=== PATIENT | female | born 1945 | race Caucasian/White ===

== ENCOUNTER 2024-04-15 21:29 | Observation (INO) ==
[2024-04-15] MEDS: OPTIRAY 320 125ml IV ONE (22:01)
[2024-04-15 22:18] LABS: Basophils # (auto) 0.08 K/uL (0.00-0.20); Basophils % (auto) 0.8 %; Eosinophils # (auto) 0.27 K/uL (0.00-0.50); Eosinophils % (auto) 2.8 %; Hematocrit (blood only) 41.3 % (37.0-47.0); Hemoglobin 14.3 g/dl (12.0-16.0); Immature Granulocytes # (auto) 0.03 K/uL (0.01-0.20); Immature Granulocytes % (auto) 0.3 %; Lymphocytes # (auto) 2.66 K/uL (1.20-3.40); Lymphocytes % (auto) 27.8 %; Mean Corpuscular Hemoglobin 31.6 pg (25.0-34.0); Mean Corpuscular Hgb Conc 34.6 g/dL (32.0-36.0); Mean Corpuscular Volume 91.2 fL (80.0-100.0); Mean Platelet Volume 11.2 fL (9.4-12.4); Monocytes # (auto) 0.89 K/uL (0.11-0.59); Monocytes % (auto) 9.3 %; Neutrophils # (auto) 5.65 K/uL (1.40-6.50); Platelet Count 199 K/uL (130-400); RDW Coefficient of Variation 12.1 % (11.5-14.5); RDW Standard Deviation 40.3 fL (36.4-46.3); Red Blood Count 4.53 M/uL (4.20-5.40); White Blood Count 9.58 K/ul (4.8-10.8)
--- NOTE | 2024-04-15 22:20 | Emergency Department Note ---
History of Present Illness General Chief complaint: Dehydration Stated complaint: VOMITING, DIZZY, DEHYDRATED Time Seen by Provider: 04/15/24 21:48 History of Present Illness This 78-year-old female visiting family from [place] that follows with [facility] presents ER for nausea and difficulty ambulating tonight that seems to have improved. Patient states she got up and could not ambulate. She states she just could not walk. She was not dizzy or lightheaded. She does feel slightly nauseous. She states she is feeling better now. Patient has chest pain, dyspnea, fever, chills, numbness, tingling, localized weakness, vision problems, difficulty word finding. No prior heart attack or stroke. Past Med/Surg History Problem List (Updated 04/15/24 @ 23:46 by Colette Dhillon PA-C) Hypokalemia (Acute) TIA (transient ischemic attack) (Acute) Social History Smoking Status: Never smoker Preferred Language: Sinhala Feels Safe at Home: Yes Review of Systems A total of 10 systems reviewed and were otherwise negative Physical Exam Vital Signs Vital Signs - 24 hr 04/15/24 21:33 04/15/24 22:36 04/15/24 22:48 Temperature 36.5 C Temperature Source Temporal Artery Scan Pulse Rate 89 97 H 100 H Pulse Rate from SpO2 Sensor 100 H Respiratory Rate 18 22 Respiratory Effort / Characteristics Non-Labored Spontaneous Respiratory Depth Normal Blood Pressure 163/92 H Blood Pressure Mean 115 Pulse Oximetry 96 95 Oxygen Delivery Method Room Air Room Air Sepsis Recent Fever Within 48 Hours No Sepsis New/Unexplained Change in Mental Status No Sepsis Action Taken by Nursing No Action Required 04/15/24 23:00 Temperature Temperature Source Pulse Rate 98 H Pulse Rate from SpO2 Sensor 98 H Respiratory Rate 20 Respiratory Effort / Characteristics Respiratory Depth Blood Pressure 163/87 H Blood Pressure Mean 119 Pulse Oximetry 96 Oxygen Delivery Method Room Air Sepsis Recent Fever Within 48 Hours Sepsis New/Unexplained Change in Mental Status Sepsis Action Taken by Nursing VITALS: Vitals are noted on the nurse's note and reviewed by myself. Vital signs stable. GENERAL: Pleasant female able to ambulate, in no acute distress, nondiaphoretic, well-developed well-nourished. SKIN: The skin was without rashes, erythema, edema, or bruising. There is no tenting of the skin. Capillary reflex less than 2 seconds. HEAD: Normocephalic atraumatic. EARS: External auditory canals clear EYES: Pupils equal round and reactive to light and accommodation. Conjunctivae without injection, sclerae without icterus. Extraocular movements intact. NOSE: Patent, no discharge. MOUTH: Mucous membranes moist. Pharynx without erythema or exudate. Uvula midline. Airway patent. Tongue does not deviate. NECK: Supple without nuchal rigidity. No lymphadenopathy. No thyromegaly. Cervical spine is nontender. No JVD. HEART: Regular rate and rhythm LUNGS: Clear to auscultation bilaterally without wheezes, rales or rhonchi. No retractions or accessory muscle use. ABDOMEN: Positive bowel sounds x 4. Normal tympanic percussion. Soft, nontender, without masses or organomegaly. Newman sign negative. No guarding or rebound tenderness. No CVA tenderness MUSCULOSKELETAL: No muscle atrophy, erythema, or edema noted. 5-5 strength throughout. NEURO: Patient was alert and oriented to person place and time. Normal sensation to light and sharp touch. Cranial nerves II through XII grossly intact. No parameter. Still above exam intact. No focal neurological deficits. Course Administered Medications Discontinued Medications Sodium Chloride (Nss) 500 mls @ 999 mls/hr IV .Q31M ONE Stop: 04/15/24 22:57 Last Infusion: 04/15/24 23:18 Dose: Infused Documented By: Admin: 04/15/24 22:31 Dose: 999 mls/hr Documented By: ANAID Famotidine (Pepcid 20mg Iv Push) 20 mg in 5 mls @ 2.5 mls/min IV NOW STA Stop: 04/15/24 23:29 Last Admin: 04/15/24 23:42 Dose: 2.5 mls/min Documented By: AVNI Ioversol (Optiray 320 125ml) 125 ml IV ONCE ONE Stop: 04/15/24 22:02 Last Admin: 04/15/24 22:01 Dose: 118 ml Documented By: KORY Ondansetron HCl (Ondansetron Inj 2 Mg/Ml 2 Ml Vial) 4 mg IV NOW STA Stop: 04/15/24 22:28 Last Admin: 04/15/24 22:32 Dose: 4 mg Documented By: ANAID Ondansetron HCl (Ondansetron Inj 2 Mg/Ml 2 Ml Vial) 4 mg IV NOW STA Stop: 04/15/24 23:29 Last Admin: 04/15/24 23:44 Dose: 4 mg Documented By: AVNI Potassium Chloride (Potassium Chloride Crtab 20 Meq Tabcr) 40 meq PO NOW STA Stop: 04/15/24 22:48 Last Admin: 04/15/24 23:10 Dose: 40 meq Documented By: ANAID Medical Decision Making Medical Records Attestation: I reviewed the patient's medical records. Home Medications Current Medication List: was personally reviewed by me Laboratory Data Attestation: I reviewed the patient's lab results. 04/15/24 21:54 04/15/24 21:54 Lab Results 04/15/24 04/15/24 04/15/24 Range/Units 21:54 22:10 22:13 WBC 9.58 (4.8-10.8) K/ul RBC 4.53 (4.20-5.40) M/uL Hgb 14.3 (12.0-16.0) g/dl Hct 41.3 (37.0-47.0) % MCV 91.2 (80.0-100.0) fL MCH 31.6 (25.0-34.0) pg MCHC 34.6 (32.0-36.0) g/dL RDW Std Deviation 40.3 (36.4-46.3) fL RDW Coeff of Siva 12.1 (11.5-14.5) % Plt Count 199 (130-400) K/uL MPV 11.2 (9.4-12.4) fL Immature Gran % (Auto) 0.3 % Neut % (Auto) 59.0 % Lymph % (Auto) 27.8 % Emanuel % (Auto) 9.3 % Eos % (Auto) 2.8 % Baso % (Auto) 0.8 % Neut # (Auto) 5.65 (1.40-6.50) K/uL Lymph # (Auto) 2.66 (1.20-3.40) K/uL Emanuel # (Auto) 0.89 H (0.11-0.59) K/uL Eos # (Auto) 0.27 (0.00-0.50) K/uL Baso # (Auto) 0.08 (0.00-0.20) K/uL Immature Gran # (Auto) 0.03 (0.01-0.20) K/uL PT 10.6 (9.0-12.0) Seconds INR 1.0 (0.9-1.1) APTT 23 (21-31) Seconds PTT Ratio 0.9 Sodium 135 L (136-145) mmol/L Potassium 3.0 L (3.5-5.1) mmol/L Chloride 95 L (98-107) mmol/L Carbon Dioxide 30 (21-32) mmol/L Anion Gap 10 (3-11) BUN 14 (6-23) mg/dl Creatinine 0.86 (0.6-1.2) mg/dl Est Cr Clr Drug Dosing 48.4 ml/min eGFR 69.10 BUN/Creatinine Ratio 16.3 (10-20) Glucose 114 H (70-99(Fasting)) mg/dl POC Glucose 108 H (70-99) mg/dl Calcium 9.8 (8.6-10.3) mg/dl Magnesium 1.8 (1.7-2.4) mg/dl Total Bilirubin 0.6 (0.2-1.0) mg/dl AST 34 (13-39) U/L ALT 18 (7-52) U/L Alkaline Phosphatase 61 (34-104) U/L Troponin I High Sens 4.1 (0-14) pg/ml Total Protein 7.3 (6.0-8.3) gm/dl Albumin 4.6 (3.4-5.0) gm/dl Globulin 2.7 (2.5-4.0) gm/dl Albumin/Globulin Ratio 1.7 (0.9-2) Ethyl Alcohol mg/dL (<10.0) mg/dl Adenovirus (PCR) Not Detected (NotDetected) B. pertussis DNA (PCR) Not Detected (NotDetected) B.parapertussis DNA PCR Not Detected (NotDetected) C. pneumoniae DNA (PCR) Not Detected (NotDetected) Coronavirus OC43 (PCR) Not Detected (NotDetected) Coronavirus HKU1 (PCR) Not Detected (NotDetected) Coronavirus 229E (PCR) Not Detected (NotDetected) SARS-CoV-2 (PCR) Not Detected (NotDetected) Coronavirus NL63 (PCR) Not Detected (NotDetected) Human Metapneumovir PCR Not Detected (NotDetected) Influenza Type A (PCR) Not Detected (NotDetected) Influenza Type B (PCR) Not Detected (NotDetected) M. pneumoniae (PCR) Not Detected (NotDetected) Parainfluenza 1 (PCR) Not Detected (NotDetected) Parainfluenza 2 (PCR) Not Detected (NotDetected) Parainfluenza 3 (PCR) Not Detected (NotDetected) Parainfluenza 4 (PCR) Not Detected (NotDetected) RSV (PCR) Not Detected (NotDetected) Entero/Rhino (PCR) Not Detected (NotDetected) 04/15/24 Range/Units 22:32 WBC (4.8-10.8) K/ul RBC (4.20-5.40) M/uL Hgb (12.0-16.0) g/dl Hct (37.0-47.0) % MCV (80.0-100.0) fL MCH (25.0-34.0) pg MCHC (32.0-36.0) g/dL RDW Std Deviation (36.4-46.3) fL RDW Coeff of Siva (11.5-14.5) % Plt Count (130-400) K/uL MPV (9.4-12.4) fL Immature Gran % (Auto) % Neut % (Auto) % Lymph % (Auto) % Emanuel % (Auto) % Eos % (Auto) % Baso % (Auto) % Neut # (Auto) (1.40-6.50) K/uL Lymph # (Auto) (1.20-3.40) K/uL Emanuel # (Auto) (0.11-0.59) K/uL Eos # (Auto) (0.00-0.50) K/uL Baso # (Auto) (0.00-0.20) K/uL Immature Gran # (Auto) (0.01-0.20) K/uL PT (9.0-12.0) Seconds INR (0.9-1.1) APTT (21-31) Seconds PTT Ratio Sodium (136-145) mmol/L Potassium (3.5-5.1) mmol/L Chloride (98-107) mmol/L Carbon Dioxide (21-32) mmol/L Anion Gap (3-11) BUN (6-23) mg/dl Creatinine (0.6-1.2) mg/dl Est Cr Clr Drug Dosing ml/min eGFR BUN/Creatinine Ratio (10-20) Glucose (70-99(Fasting)) mg/dl POC Glucose (70-99) mg/dl Calcium (8.6-10.3) mg/dl Magnesium (1.7-2.4) mg/dl Total Bilirubin (0.2-1.0) mg/dl AST (13-39) U/L ALT (7-52) U/L Alkaline Phosphatase (34-104) U/L Troponin I High Sens (0-14) pg/ml Total Protein (6.0-8.3) gm/dl Albumin (3.4-5.0) gm/dl Globulin (2.5-4.0) gm/dl Albumin/Globulin Ratio (0.9-2) Ethyl Alcohol mg/dL < 10.0 (<10.0) mg/dl Adenovirus (PCR) (NotDetected) B. pertussis DNA (PCR) (NotDetected) B.parapertussis DNA PCR (NotDetected) C. pneumoniae DNA (PCR) (NotDetected) Coronavirus OC43 (PCR) (NotDetected) Coronavirus HKU1 (PCR) (NotDetected) Coronavirus 229E (PCR) (NotDetected) SARS-CoV-2 (PCR) (NotDetected) Coronavirus NL63 (PCR) (NotDetected) Human Metapneumovir PCR (NotDetected) Influenza Type A (PCR) (NotDetected) Influenza Type B (PCR) (NotDetected) M. pneumoniae (PCR) (NotDetected) Parainfluenza 1 (PCR) (NotDetected) Parainfluenza 2 (PCR) (NotDetected) Parainfluenza 3 (PCR) (NotDetected) Parainfluenza 4 (PCR) (NotDetected) RSV (PCR) (NotDetected) Entero/Rhino (PCR) (NotDetected) Imaging Data Attestation: I personally reviewed and interpreted this imaging study as follows: Radiologist's Impression: Head CT 04/15/24 21:55 CR Exam(s): CT HEAD Without Contrast EXAM: CT Head Without Intravenous Contrast CLINICAL HISTORY: Reason for exam: neuro deficit, acute stroke suspected. TECHNIQUE: Axial computed tomography images of the head/brain without intravenous contrast. CTDI is 12.34 mGy and DLP is 481.93 mGy-cm. Automated exposure control was utilized for the study. A dose lowering technique was utilized adhering to the principles of ALARA. COMPARISON: No relevant prior studies available. FINDINGS: Brain: Generalized parenchymal volume loss. Mild-moderate chronic small vessel ischemic change. José-white matter differentiation maintained. No hemorrhage, mass effect, parenchymal edema, or midline shift. Ventricles: Unremarkable. No hydrocephalus. Bones/joints: Unremarkable. No acute fracture. Soft tissues: Unremarkable. Vasculature: Intracranial atherosclerosis. Sinuses: Unremarkable as visualized. Mastoid air cells: Unremarkable as visualized. No mastoid effusion. IMPRESSION: No acute intracranial process. Communications: Call Doctor Stroke Electronically signed by: Cam Dang M.D. 04/15/24 22:26 PM Head CTA 04/15/24 21:55 CR Exam(s): CTA HEAD With Contrast IV Amt: 118 ML OPTIRAY 320 EXAM: CT Angiography Head With Intravenous Contrast CLINICAL HISTORY: Reason for exam: neuro deficit, acute stroke suspected. TECHNIQUE: Axial computed tomographic angiography images of the head with intravenous contrast. CTDI is 38.1 mGy and DLP is 624.41 mGy-cm. Automated exposure control was utilized for the study. A dose lowering technique was utilized adhering to the principles of ALARA. MIP reconstructed images were created and reviewed. CONTRAST: Patient received 118 ML OPTIRAY 320 of IV contrast COMPARISON: CT head 04/15/24 FINDINGS: Right internal carotid artery: No acute findings. Intracranial segment is patent with no significant stenosis. No aneurysm. Right anterior cerebral artery: Unremarkable. No occlusion or significant stenosis. No aneurysm. Right middle cerebral artery: Unremarkable. No occlusion or significant stenosis. No aneurysm. Right posterior cerebral artery: origin of the right CRUISE GUIDE. No occlusion or significant stenosis. No aneurysm. Right vertebral artery: Unremarkable as visualized. Left internal carotid artery: No acute findings. Intracranial segment is patent with no significant stenosis. No aneurysm. Left anterior cerebral artery: Unremarkable. No occlusion or significant stenosis. No aneurysm. Left middle cerebral artery: Unremarkable. No occlusion or significant stenosis. No aneurysm. Left posterior cerebral artery: origin of the left CRUISE GUIDE. No occlusion or significant stenosis. No aneurysm. Left vertebral artery: Left vertebral artery terminates in PICA, developmental variant. Basilar artery: Hypoplastic basilar artery with segmental occlusion. No aneurysm. IMPRESSION: Hypoplastic basilar artery with segmental occlusion, age-indeterminate. Patient has anterior-dominant circulation with origin of both rear load truck driver, which appear patent. Consider MRI brain for further evaluation. Communications: Call Doctor Stroke Electronically signed by: Cam Dang M.D. 04/15/24 22:37 PM Neck CTA 04/15/24 21:55 CR Exam(s): CTA NECK With Contrast IV Amt: 118 ML OPTIRAY 320 EXAM: CT Angiography Neck With Intravenous Contrast CLINICAL HISTORY: Reason for exam: neuro deficit, acute stroke suspected. TECHNIQUE: Routine carotid CT angiography protocol was performed with intravenous contrast. NASCET criteria using the distal ICAs for comparison were used for evaluation of stenoses. CTDI is 12.34 mGy and DLP is 481.93 mGy-cm. Automated exposure control was utilized for the study. A dose lowering technique was utilized adhering to the principles of ALARA. MIP reconstructed images were created and reviewed. CONTRAST: Patient received 118 ML OPTIRAY 320 of IV contrast COMPARISON: None. FINDINGS: VASCULATURE: Right common carotid artery: Unremarkable. No occlusion or significant stenosis. No dissection. Right internal carotid artery: Unremarkable. Extracranial segment is patent with no occlusion or significant stenosis. No dissection. Right external carotid artery: Unremarkable. No occlusion. Right vertebral artery: Unremarkable. No occlusion or significant stenosis. No dissection. Left common carotid artery: Unremarkable. No occlusion or significant stenosis. No dissection. Left internal carotid artery: Unremarkable. Extracranial segment is patent with no occlusion or significant stenosis. No dissection. Left external carotid artery: Unremarkable. No occlusion. Left vertebral artery: Unremarkable. No occlusion or significant stenosis. No dissection. Aorta: Variant aortic arch branch anatomy with direct origin of the left vertebral artery from the arch. NECK: Bones/joints: Degenerative changes of the cervical spine. No acute osseous findings. Soft tissues: Unremarkable. Thyroid: Right thyroid lobe nodule measuring 16 mm. Lung apices: Clear. CAROTID STENOSIS REFERENCE USING NASCET CRITERIA: % ICA stenosis = (1 - narrowest ICA diameter/diameter of distal cervical ICA) x 100. Mild - <50% stenosis. Moderate - 50-69% stenosis. Severe - 70-94% stenosis. Near occlusion - 95-99% stenosis. Occluded - 100% stenosis. IMPRESSION: 1. No dissection, significant stenosis, or occlusion. 2. Right thyroid lobe nodule measuring 16 mm. Consider thyroid ultrasound correlation if not previously performed. Communications: Call Doctor Stroke Electronically signed by: Cam Dang M.D. 04/15/24 22:32 PM MDM Narrative Prior records/ancillary studies reviewed and summarized above. Nursing notes reviewed. Additional history obtained from family The patient's history was concerning for difficulty ambulating and nausea. Differential diagnosis: Etiologies such as metabolic, infection, hypo/hyperglycemia, electrolyte abnormalities, cardiac sources, intracerebral event, toxicologic, neurologic, as well as others were entertained. Physical examination: As above. ER treatment provided: IV Lock An order was placed for continuous cardiac monitoring. The monitor shows a rate of 60-100 with a sinus rhythm per my interpretation. Zofran, potassium, Pepcid Patient was emergently sent down for stroke evaluation On reassessment the patient felt better. Diagnostics interpretation by me: ECG: Ordered for weakness EKG: Normal sinus, poor baseline, T wave inversions in V5 and V6, rate of 93. Impression normal sinus rhythm poor baseline with nonspecific T wave inversions in the lateral leads independently interpreted by myself The labs Independently Interpreted by myself revealed hypokalemia and this is replaced orally. Normal magnesium Negative troponin Negative [employer] Imaging studies: CTs were reviewed and read by radiology as above TIA Score: Age > 60:(1) 1 BP >140 >90 (1): 1 Clinical features (unilateral weakness) (2): 0 CF speech disturbance (1): 1 Duration of symptoms 10-60min (1): 1 Duration >60min (2): 0 Diabetes (1): 0 Score @ 2days @ 7days @ 90days 0-3 low 1% 1.2% 3.1% 4-5 mod 4.1% 5.9% 9.8% 6-7 high 8.1% 11.7% 17.8% Total: 4 Consultation: A consultation was placed with the hospitalist. The case was discussed and diagnostics were reviewed. The patient was evaluated in the ER for further treatment. Exam and history seem consistent with concerns for TIA. Patient was unable to walk initially but now was able to. Her symptoms have resolved. No acute stroke on imaging. TIA score was moderate. Brain MRI was ordered. Subacute stroke was noted. I did discuss this with the radiologist. Medicine consulted case discussed. Patient will be admitted to the medical service. Patient is agreeable. By the evaluation outlined above emergent etiologies such as infection, cardiac sources, toxologic, abnormalities blood glucose, metabolic, as well as others were deemed relatively unlikely. The pt informed about the findings as listed above. All questions were answered and pleased with the treatment. The chart was completed utilizing [employer] Speech voice recognition software. Grammatical errors, random word insertions, pronoun errors, and incomplete sentences are an occassional consequence of this system due to software limitations, ambient noise, and hardware issues. Any formal questions or concerns about the content, text, or information contained within the body of this dictation should be directly addressed to the physician school bus driver/teacher assistant for clarification. Impression & Plan TIA (transient ischemic attack), Hypokalemia Discharge Plan Visit Data Chief Complaint: Dehydration Stated Complaint: VOMITING, DIZZY, DEHYDRATED ED Provider: Jeferson Upton ED Midlevel Provider: Colette Dhillon Discharge Problem: TIA (transient ischemic attack), Hypokalemia Patient Disposition: Admitted As Inpatient Condition: Good Forms Stand Alone Forms: My [facility] Referrals Referrals: PCP,NO [Physician] -
[2024-04-15 22:27] LABS: Albumin Globulin Ratio 1.7 (0.9-2); Albumin Level 4.6 gm/dl (3.4-5.0); BUN Creatinine Ratio 16.3 (10-20); Bilirubin,Total 0.6 mg/dl (0.2-1.0); Calcium 9.8 mg/dl (8.6-10.3); Creatinine Clr Calc Pharmacy 48.4 ml/min; Globulin 2.7 gm/dl (2.5-4.0); Magnesium 1.8 mg/dl (1.7-2.4); Total Protein 7.3 gm/dl (6.0-8.3)
--- NOTE | 2024-04-15 22:27 | CT Scan Report ---
Exam(s): CT HEAD Without Contrast EXAM: CT Head Without Intravenous Contrast CLINICAL HISTORY: Reason for exam: neuro deficit, acute stroke suspected. TECHNIQUE: Axial computed tomography images of the head/brain without intravenous contrast. CTDI is 12.34 mGy and DLP is 481.93 mGy-cm. Automated exposure control was utilized for the study. A dose lowering technique was utilized adhering to the principles of ALARA. COMPARISON: No relevant prior studies available. FINDINGS: Brain: Generalized parenchymal volume loss. Mild-moderate chronic small vessel ischemic change. José-white matter differentiation maintained. No hemorrhage, mass effect, parenchymal edema, or midline shift. Ventricles: Unremarkable. No hydrocephalus. Bones/joints: Unremarkable. No acute fracture. Soft tissues: Unremarkable. Vasculature: Intracranial atherosclerosis. Sinuses: Unremarkable as visualized. Mastoid air cells: Unremarkable as visualized. No mastoid effusion. IMPRESSION: No acute intracranial process. Communications: Call Doctor Stroke Electronically signed by: Cam Dang M.D. 04/15/24 22:26 PM
[2024-04-15] MEDS: SODIUM CHLORIDE 0.9% 500 ML IV ONE (22:31)
[2024-04-15] MEDS: ONDANSETRON INJ 2 MG/ML 2 ML VIAL IV STA ×2 (22:32→23:44)
--- NOTE | 2024-04-15 22:33 | CT Scan Report ---
Exam(s): CTA NECK With Contrast IV Amt: 118 ML OPTIRAY 320 EXAM: CT Angiography Neck With Intravenous Contrast CLINICAL HISTORY: Reason for exam: neuro deficit, acute stroke suspected. TECHNIQUE: Routine carotid CT angiography protocol was performed with intravenous contrast. NASCET criteria using the distal ICAs for comparison were used for evaluation of stenoses. CTDI is 12.34 mGy and DLP is 481.93 mGy-cm. Automated exposure control was utilized for the study. A dose lowering technique was utilized adhering to the principles of ALARA. MIP reconstructed images were created and reviewed. CONTRAST: Patient received 118 ML OPTIRAY 320 of IV contrast COMPARISON: None. FINDINGS: VASCULATURE: Right common carotid artery: Unremarkable. No occlusion or significant stenosis. No dissection. Right internal carotid artery: Unremarkable. Extracranial segment is patent with no occlusion or significant stenosis. No dissection. Right external carotid artery: Unremarkable. No occlusion. Right vertebral artery: Unremarkable. No occlusion or significant stenosis. No dissection. Left common carotid artery: Unremarkable. No occlusion or significant stenosis. No dissection. Left internal carotid artery: Unremarkable. Extracranial segment is patent with no occlusion or significant stenosis. No dissection. Left external carotid artery: Unremarkable. No occlusion. Left vertebral artery: Unremarkable. No occlusion or significant stenosis. No dissection. Aorta: Variant aortic arch branch anatomy with direct origin of the left vertebral artery from the arch. NECK: Bones/joints: Degenerative changes of the cervical spine. No acute osseous findings. Soft tissues: Unremarkable. Thyroid: Right thyroid lobe nodule measuring 16 mm. Lung apices: Clear. CAROTID STENOSIS REFERENCE USING NASCET CRITERIA: % ICA stenosis = (1 - narrowest ICA diameter/diameter of distal cervical ICA) x 100. Mild - <50% stenosis. Moderate - 50-69% stenosis. Severe - 70-94% stenosis. Near occlusion - 95-99% stenosis. Occluded - 100% stenosis. IMPRESSION: 1. No dissection, significant stenosis, or occlusion. 2. Right thyroid lobe nodule measuring 16 mm. Consider thyroid ultrasound correlation if not previously performed. Communications: Call Doctor Stroke Electronically signed by: Cam Dang M.D. 04/15/24 22:32 PM
[2024-04-15 22:35] LABS: Troponin I High Sensitivity 4.1 pg/ml (0-14)
--- NOTE | 2024-04-15 22:38 | CT Scan Report ---
Exam(s): CTA HEAD With Contrast IV Amt: 118 ML OPTIRAY 320 EXAM: CT Angiography Head With Intravenous Contrast CLINICAL HISTORY: Reason for exam: neuro deficit, acute stroke suspected. TECHNIQUE: Axial computed tomographic angiography images of the head with intravenous contrast. CTDI is 38.1 mGy and DLP is 624.41 mGy-cm. Automated exposure control was utilized for the study. A dose lowering technique was utilized adhering to the principles of ALARA. MIP reconstructed images were created and reviewed. CONTRAST: Patient received 118 ML OPTIRAY 320 of IV contrast COMPARISON: CT head 04/15/24 FINDINGS: Right internal carotid artery: No acute findings. Intracranial segment is patent with no significant stenosis. No aneurysm. Right anterior cerebral artery: Unremarkable. No occlusion or significant stenosis. No aneurysm. Right middle cerebral artery: Unremarkable. No occlusion or significant stenosis. No aneurysm. Right posterior cerebral artery: origin of the right JEWELRY SALES REPRESENTATIVE. No occlusion or significant stenosis. No aneurysm. Right vertebral artery: Unremarkable as visualized. Left internal carotid artery: No acute findings. Intracranial segment is patent with no significant stenosis. No aneurysm. Left anterior cerebral artery: Unremarkable. No occlusion or significant stenosis. No aneurysm. Left middle cerebral artery: Unremarkable. No occlusion or significant stenosis. No aneurysm. Left posterior cerebral artery: origin of the left JEWELRY SALES REPRESENTATIVE. No occlusion or significant stenosis. No aneurysm. Left vertebral artery: Left vertebral artery terminates in PICA, developmental variant. Basilar artery: Hypoplastic basilar artery with segmental occlusion. No aneurysm. IMPRESSION: Hypoplastic basilar artery with segmental occlusion, age-indeterminate. Patient has anterior-dominant circulation with origin of both bread wrapping machine feeder, which appear patent. Consider MRI brain for further evaluation. Communications: Call Doctor Stroke Electronically signed by: Cam Dang M.D. 04/15/24 22:37 PM
[2024-04-15 22:47] LABS: Partial Thromboplastin Ratio 0.9; Partial Thromboplastin Time 23 Seconds (21-31); Prothrombin Time 10.6 Seconds (9.0-12.0)
[2024-04-15] MEDS: POTASSIUM CHLORIDE CRTAB 20 MEQ TABCR PO STA (23:10)
[2024-04-15 23:11] LABS: Adenovirus PCR Not Detected (NotDetected); Bordetella parapertussis PCR Not Detected (NotDetected); Bordetella pertussis PCR Not Detected (NotDetected); Chlamydia pneumoniae PCR Not Detected (NotDetected); Coronavirus 229E PCR Not Detected (NotDetected); Coronavirus CoV-2 (COVID19)PCR Not Detected (NotDetected); Coronavirus HKU1 PCR Not Detected (NotDetected); Coronavirus NL63 PCR Not Detected (NotDetected); Coronavirus OC43PCR Not Detected (NotDetected); Human Metapneumovirus PCR Not Detected (NotDetected); Influenza A PCR Not Detected (NotDetected); Influenza B PCR Not Detected (NotDetected); Mycoplasma pneumoniae PCR Not Detected (NotDetected); Parainfluenza Virus 1 PCR Not Detected (NotDetected); Parainfluenza Virus 2 PCR Not Detected (NotDetected); Parainfluenza Virus 3 PCR Not Detected (NotDetected); Parainfluenza Virus 4 PCR Not Detected (NotDetected); Respiratory Syncytial VirusPCR Not Detected (NotDetected); Rhinovirus/Enterovirus PCR Not Detected (NotDetected)
--- NOTE | 2024-04-15 23:22 | Emergency Department Note ---
ED Visit Note I was consulted by the Advanced Practice Provider. I personally made/approved the management plan and take responsibility for the patient management. I performed a substantive portion of the visit. This includes the aspects of: -History/Physical -MDM .
[2024-04-15] MEDS: FAMOTIDINE 20MG IV PUSH 20 MG/5 ML SYR IV STA (23:42)
[2024-04-16] MEDS: LORazepam 1 MG/1 ML SYR ED Inj Use IV STA (00:22)
--- NOTE | 2024-04-16 00:22 | XRay Report ---
Exam(s): XR CXR 1 VIEW EXAM: XR Chest, 1 View CLINICAL HISTORY: Reason for exam: neuro deficit, acute stroke suspected. TECHNIQUE: Frontal view of the chest. COMPARISON: No relevant prior studies available. FINDINGS: Lungs: Unremarkable. No consolidation. Pleural space: Unremarkable. No pleural effusion or pneumothorax. Heart: Unremarkable. No cardiomegaly or pulmonary vascular congestion. Bones/joints: No acute fracture. No dislocation. IMPRESSION: No evidence of acute cardiopulmonary disease. Electronically signed by: Cam Dang M.D. 04/16/24 00:21 AM
[2024-04-16] MEDS: ASPIRIN 81 MG CHEW PO STA (02:38)
--- NOTE | 2024-04-16 02:48 | History & Physical Report ---
Date of Service April 16, 2024 Assessment & Plan (1) Stroke-like symptom: Plan: 78-year-old female with past medical history significant for prediabetes, asthma in remission, abnormal EKG, hypertension, cholelithiasis, nausea vomiting ,diarrhea, chronic kidney disease stage III presents with strokelike symptoms. Patient was at [facility]. Around 8 PM she suddenly felt nauseous and sick to her stomach she felt like she could not move and she sat down. She was feeling nauseous and tried to vomit but could not vomit. She coughed trying to vomit. The feeling of not able to move lasted for about 45 minutes. Currently in the ER she is able to ambulate okay. After antinausea medications she is feeling better. Denies any headache or dizziness. No blurred visions or double vision. No earache, no runny nose currently. No sore throat. No difficulty swallowing. Denies chest pain. Denies shortness of breath. Feeling sick to her stomach. No diarrhea or constipation. No blood in stools or black stools. Micturating okay. No rash. 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 Right thyroid lobe measuring 16 mm Awaiting brain MRI Currently symptoms improved Monitoring telemetry Neurochecks PT OT evaluation Follow lipid profile and HbA1c levels repeat labs Starting on aspirin. Continue home rosuvastatin Neurology consult in a.m. for further recommendation Nausea and vomiting LFTs okay Troponin okay If not improving will get CT scan Gentle fluids and antiemetics. Hypertension On valsartan hydrochlorothiazide and nifedipine and atenolol Will monitor Right thyroid nodule will follow ultrasound will check tsh Hyperlipidemia On statin Prediabetes Will follow HbA1c levels CKD stage III Creatinine 0.8 We will monitor Hypokalemia Replace DVT prophylaxis SCDs Disposition Telemetry Code. History of Present Illness Chief Complaint: Strokelike symptoms Primary Care Provider: Vargas Barber DO 78-year-old female with past medical history significant for prediabetes, asthma in remission, abnormal EKG, hypertension, cholelithiasis, nausea vomiting ,diarrhea, chronic kidney disease stage III presents with strokelike symptoms. Patient was at [facility]. Around 8 PM she suddenly felt nauseous and sick to her stomach she felt like she could not move and she sat down. She was feeling nauseous and tried to vomit but could not vomit. She coughed trying to vomit. The feeling of not able to move lasted for about 45 minutes. Currently in the ER she is able to ambulate okay. After antinausea medications she is feeling better. Denies any headache or dizziness. No blurred visions or double vision. No earache, no runny nose currently. No sore throat. No difficulty swallowing. Denies chest pain. Denies shortness of breath. Feeling sick to her stomach. No diarrhea or constipation. No blood in stools or black stools. Micturating okay. No rash. Hemodynamics are okay.Patient got Ativan for MRI scan after that she was requiring oxygen Past medical history. As mentioned above Past surgical history. Colonoscopy. Removal of skin lesions. Tonsillectomy. Social history. Quit smoking 1977. Smoked 0.3 packs a day for 10 years. Alcohol rarely. No drug use. Family history. Mother had stomach cancer. Hypertension. Brother had hypertension. Father had hypertension. Son has hypertension Allergies Allergy/AdvReac Type Severity Reaction Status Date / Time No Known Allergies Allergy Unverified 04/16/24 00:25 Home Medications Medication Instructions Recorded Confirmed Type atenolol 100 mg tablet 100 mg PO QAM 04/16/24 04/16/24 History betamethasone valerate 0.1 % 1 applic topical BID 04/16/24 04/16/24 History topical cream escitalopram oxalate 10 mg tablet 10 mg PO DAILY 04/16/24 04/16/24 History nifedipine 30 mg tablet,extended 30 mg PO DAILY 04/16/24 04/16/24 History release 24 hr raloxifene 60 mg tablet 60 mg PO DAILY 04/16/24 04/16/24 History rosuvastatin 40 mg tablet 40 mg PO DAILY 04/16/24 04/16/24 History valsartan 160 1 tab PO QAM 04/16/24 04/16/24 History mg-hydrochlorothiazide 12.5 mg tablet Past Med/Surg History Problem List (Updated 04/16/24 @ 02:42 by Boubacar Mendoza MD) Stroke-like symptom Hypokalemia (Acute) TIA (transient ischemic attack) (Acute) Social History Smoking Status: Former smoker Tobacco Type: Cigarettes Smoking End Date: 1982; Second Hand Exposure: No; Do You Dip or Chew Tobacco: No; Tobacco Cessation Education Requested by Patient: No Hx Alcohol Use: No Hx Substance Use: No Preferred Language: Panamanian Communication Ability: Effective Piano Refinisher Required: No Beliefs That Will Affect Care: None Current Living Situation: Alone Other Information That Helps Us Care for You: No Feels Safe at Home: Yes Safety Concerns: Feels Safe At This Time Assistive Devices: Glasses Review of Systems Review of Systems: All systems reviewed & are unremarkable except as noted in HPI & below Physical Exam Physical Exam: General- Not in distress Head- atraumatic Eyes- PERRL, EOMI. ENT- oropharynx clear Neck- supple, no JVD Lungs- clear to auscultation no wheezing or crackles Heart- regular rate and rhythm; no murmur, no gallop. Abdomen- normal bowel sounds, soft, nontender, no distension. Extremities-trace pretibial edema present, no erythema seen Neuro- alert, oriented PERRL, EOMI; no facial palsy; no dysarthria; motor 5/5 bilaterally; no pronator drift, co-ordination of movements normal, sensations intact, position sense intact Results & Data Results & Data Vital Signs (Past 12 Hours) Vital Signs Temp Pulse Resp BP Pulse Ox O2 Del Method O2 Flow Rate 04/16/24 02:32 105 H 04/16/24 02:05 100 Nasal Cannula 2 04/16/24 02:00 120 H 22 129/83 100 Nasal Cannula 2 04/16/24 01:34 100 H 20 100 Nasal Cannula 1 04/16/24 01:33 126 H 18 115/83 87 L Room Air 04/16/24 01:12 110 H 20 137/83 95 Room Air 04/16/24 01:07 100 H 20 137/83 96 Room Air 04/16/24 00:03 108 H 19 152/86 H 100 Room Air 04/15/24 23:00 98 H 20 163/87 H 96 Room Air 04/15/24 22:48 100 H 22 95 Room Air 04/15/24 22:36 97 H 04/15/24 21:33 36.5 C 89 18 163/92 H 96 Room Air Diagnostic Findings Laboratory Results WBC 9.58 K/ul (4.8-10.8) 04/15/24 21:54 RBC 4.53 M/uL (4.20-5.40) 04/15/24 21:54 Hgb 14.3 g/dl (12.0-16.0) 04/15/24 21:54 Hct 41.3 % (37.0-47.0) 04/15/24 21:54 MCV 91.2 fL (80.0-100.0) 04/15/24 21:54 MCH 31.6 pg (25.0-34.0) 04/15/24 21:54 MCHC 34.6 g/dL (32.0-36.0) 04/15/24 21:54 RDW Std Deviation 40.3 fL (36.4-46.3) 04/15/24 21:54 RDW Coeff of Siva 12.1 % (11.5-14.5) 04/15/24 21:54 Plt Count 199 K/uL (130-400) 04/15/24 21:54 MPV 11.2 fL (9.4-12.4) 04/15/24 21:54 Immature Gran % (Auto) 0.3 % 04/15/24 21:54 Neut % (Auto) 59.0 % 04/15/24 21:54 Lymph % (Auto) 27.8 % 04/15/24 21:54 Mariposa % (Auto) 9.3 % 04/15/24 21:54 Eos % (Auto) 2.8 % 04/15/24 21:54 Baso % (Auto) 0.8 % 04/15/24 21:54 Neut # (Auto) 5.65 K/uL (1.40-6.50) 04/15/24 21:54 Lymph # (Auto) 2.66 K/uL (1.20-3.40) 04/15/24 21:54 Mariposa # (Auto) 0.89 K/uL (0.11-0.59) H 04/15/24 21:54 Eos # (Auto) 0.27 K/uL (0.00-0.50) 04/15/24 21:54 Baso # (Auto) 0.08 K/uL (0.00-0.20) 04/15/24 21:54 Immature Gran # (Auto) 0.03 K/uL (0.01-0.20) 04/15/24 21:54 PT 10.6 Seconds (9.0-12.0) 04/15/24 21:54 INR 1.0 (0.9-1.1) 04/15/24 21:54 APTT 23 Seconds (21-31) 04/15/24 21:54 PTT Ratio 0.9 04/15/24 21:54 Sodium 135 mmol/L (136-145) L 04/15/24 21:54 Potassium 3.0 mmol/L (3.5-5.1) L 04/15/24 21:54 Chloride 95 mmol/L (98-107) L 04/15/24 21:54 Carbon Dioxide 30 mmol/L (21-32) 04/15/24 21:54 Anion Gap 10 (3-11) 04/15/24 21:54 BUN 14 mg/dl (6-23) 04/15/24 21:54 Creatinine 0.86 mg/dl (0.6-1.2) 04/15/24 21:54 Est Cr Clr Drug Dosing 48.4 ml/min 04/15/24 21:54 eGFR 69.10 04/15/24 21:54 BUN/Creatinine Ratio 16.3 (10-20) 04/15/24 21:54 Glucose 114 mg/dl (70-99(Fasting)) H 04/15/24 21:54 POC Glucose 108 mg/dl (70-99) H 04/15/24 22:13 Calcium 9.8 mg/dl (8.6-10.3) 04/15/24 21:54 Magnesium 1.8 mg/dl (1.7-2.4) 04/15/24 21:54 Total Bilirubin 0.6 mg/dl (0.2-1.0) 04/15/24 21:54 AST 34 U/L (13-39) 04/15/24 21:54 ALT 18 U/L (7-52) 04/15/24 21:54 Alkaline Phosphatase 61 U/L (34-104) 04/15/24 21:54 Troponin I High Sens 4.1 pg/ml (0-14) 04/15/24 21:54 Total Protein 7.3 gm/dl (6.0-8.3) 04/15/24 21:54 Albumin 4.6 gm/dl (3.4-5.0) 04/15/24 21:54 Globulin 2.7 gm/dl (2.5-4.0) 04/15/24 21:54 Albumin/Globulin Ratio 1.7 (0.9-2) 04/15/24 21:54 Ethyl Alcohol mg/dL < 10.0 mg/dl (<10.0) 04/15/24 22:32 Adenovirus (PCR) Not Detected (NotDetected) 04/15/24 22:10 B. pertussis DNA (PCR) Not Detected (NotDetected) 04/15/24 22:10 B.parapertussis DNA PCR Not Detected (NotDetected) 04/15/24 22:10 C. pneumoniae DNA (PCR) Not Detected (NotDetected) 04/15/24 22:10 Coronavirus OC43 (PCR) Not Detected (NotDetected) 04/15/24 22:10 Coronavirus HKU1 (PCR) Not Detected (NotDetected) 04/15/24 22:10 Coronavirus 229E (PCR) Not Detected (NotDetected) 04/15/24 22:10 SARS-CoV-2 (PCR) Not Detected (NotDetected) 04/15/24 22:10 Coronavirus NL63 (PCR) Not Detected (NotDetected) 04/15/24 22:10 Human Metapneumovir PCR Not Detected (NotDetected) 04/15/24 22:10 Influenza Type A (PCR) Not Detected (NotDetected) 04/15/24 22:10 Influenza Type B (PCR) Not Detected (NotDetected) 04/15/24 22:10 M. pneumoniae (PCR) Not Detected (NotDetected) 04/15/24 22:10 Parainfluenza 1 (PCR) Not Detected (NotDetected) 04/15/24 22:10 Parainfluenza 2 (PCR) Not Detected (NotDetected) 04/15/24 22:10 Parainfluenza 3 (PCR) Not Detected (NotDetected) 04/15/24 22:10 Parainfluenza 4 (PCR) Not Detected (NotDetected) 04/15/24 22:10 RSV (PCR) Not Detected (NotDetected) 04/15/24 22:10 Entero/Rhino (PCR) Not Detected (NotDetected) 04/15/24 22:10 Blood Type O Positive 04/15/24 22:32 Antibody Screen NEGATIVE 04/15/24 22:32 Impressions Chest X-Ray 04/15/24 21:55 Exam(s): XR CXR 1 VIEW EXAM: XR Chest, 1 View CLINICAL HISTORY: Reason for exam: neuro deficit, acute stroke suspected. TECHNIQUE: Frontal view of the chest. COMPARISON: No relevant prior studies available. FINDINGS: Lungs: Unremarkable. No consolidation. Pleural space: Unremarkable. No pleural effusion or pneumothorax. Heart: Unremarkable. No cardiomegaly or pulmonary vascular congestion. Bones/joints: No acute fracture. No dislocation. IMPRESSION: No evidence of acute cardiopulmonary disease. Electronically signed by: Cam Dang M.D. 04/16/24 00:[address] 04/15/24 21:55 CR Exam(s): CT HEAD Without Contrast EXAM: CT Head Without Intravenous Contrast CLINICAL HISTORY: Reason for exam: neuro deficit, acute stroke suspected. TECHNIQUE: Axial computed tomography images of the head/brain without intravenous contrast. CTDI is 12.34 mGy and DLP is 481.93 mGy-cm. Automated exposure control was utilized for the study. A dose lowering technique was utilized adhering to the principles of ALARA. COMPARISON: No relevant prior studies available. FINDINGS: Brain: Generalized parenchymal volume loss. Mild-moderate chronic small vessel ischemic change. José-white matter differentiation maintained. No hemorrhage, mass effect, parenchymal edema, or midline shift. Ventricles: Unremarkable. No hydrocephalus. Bones/joints: Unremarkable. No acute fracture. Soft tissues: Unremarkable. Vasculature: Intracranial atherosclerosis. Sinuses: Unremarkable as visualized. Mastoid air cells: Unremarkable as visualized. No mastoid effusion. IMPRESSION: No acute intracranial process. Communications: Call Doctor Stroke Electronically signed by: Cam Dang M.D. 04/15/24 22:26 PM Head CTA 04/15/24 21:55 CR Exam(s): CTA HEAD With Contrast IV Amt: 118 ML OPTIRAY 320 EXAM: CT Angiography Head With Intravenous Contrast CLINICAL HISTORY: Reason for exam: neuro deficit, acute stroke suspected. TECHNIQUE: Axial computed tomographic angiography images of the head with intravenous contrast. CTDI is 38.1 mGy and DLP is 624.41 mGy-cm. Automated exposure control was utilized for the study. A dose lowering technique was utilized adhering to the principles of ALARA. MIP reconstructed images were created and reviewed. CONTRAST: Patient received 118 ML OPTIRAY 320 of IV contrast COMPARISON: CT head 04/15/24 FINDINGS: Right internal carotid artery: No acute findings. Intracranial segment is patent with no significant stenosis. No aneurysm. Right anterior cerebral artery: Unremarkable. No occlusion or significant stenosis. No aneurysm. Right middle cerebral artery: Unremarkable. No occlusion or significant stenosis. No aneurysm. Right posterior cerebral artery: origin of the right SUPERVISORY INVESTIGATIVE SPECIALIST. No occlusion or significant stenosis. No aneurysm. Right vertebral artery: Unremarkable as visualized. Left internal carotid artery: No acute findings. Intracranial segment is patent with no significant stenosis. No aneurysm. Left anterior cerebral artery: Unremarkable. No occlusion or significant stenosis. No aneurysm. Left middle cerebral artery: Unremarkable. No occlusion or significant stenosis. No aneurysm. Left posterior cerebral artery: origin of the left SUPERVISORY INVESTIGATIVE SPECIALIST. No occlusion or significant stenosis. No aneurysm. Left vertebral artery: Left vertebral artery terminates in PICA, developmental variant. Basilar artery: Hypoplastic basilar artery with segmental occlusion. No aneurysm. IMPRESSION: Hypoplastic basilar artery with segmental occlusion, age-indeterminate. Patient has anterior-dominant circulation with origin of both handkerchief cutter, which appear patent. Consider MRI brain for further evaluation. Communications: Call Doctor Stroke Electronically signed by: Cam Dang M.D. 04/15/24 22:37 PM Neck CTA 04/15/24 21:55 CR Exam(s): CTA NECK With Contrast IV Amt: 118 ML OPTIRAY 320 EXAM: CT Angiography Neck With Intravenous Contrast CLINICAL HISTORY: Reason for exam: neuro deficit, acute stroke suspected. TECHNIQUE: Routine carotid CT angiography protocol was performed with intravenous contrast. NASCET criteria using the distal ICAs for comparison were used for evaluation of stenoses. CTDI is 12.34 mGy and DLP is 481.93 mGy-cm. Automated exposure control was utilized for the study. A dose lowering technique was utilized adhering to the principles of ALARA. MIP reconstructed images were created and reviewed. CONTRAST: Patient received 118 ML OPTIRAY 320 of IV contrast COMPARISON: None. FINDINGS: VASCULATURE: Right common carotid artery: Unremarkable. No occlusion or significant stenosis. No dissection. Right internal carotid artery: Unremarkable. Extracranial segment is patent with no occlusion or significant stenosis. No dissection. Right external carotid artery: Unremarkable. No occlusion. Right vertebral artery: Unremarkable. No occlusion or significant stenosis. No dissection. Left common carotid artery: Unremarkable. No occlusion or significant stenosis. No dissection. Left internal carotid artery: Unremarkable. Extracranial segment is patent with no occlusion or significant stenosis. No dissection. Left external carotid artery: Unremarkable. No occlusion. Left vertebral artery: Unremarkable. No occlusion or significant stenosis. No dissection. Aorta: Variant aortic arch branch anatomy with direct origin of the left vertebral artery from the arch. NECK: Bones/joints: Degenerative changes of the cervical spine. No acute osseous findings. Soft tissues: Unremarkable. Thyroid: Right thyroid lobe nodule measuring 16 mm. Lung apices: Clear. CAROTID STENOSIS REFERENCE USING NASCET CRITERIA: % ICA stenosis = (1 - narrowest ICA diameter/diameter of distal cervical ICA) x 100. Mild - <50% stenosis. Moderate - 50-69% stenosis. Severe - 70-94% stenosis. Near occlusion - 95-99% stenosis. Occluded - 100% stenosis. IMPRESSION: 1. No dissection, significant stenosis, or occlusion. 2. Right thyroid lobe nodule measuring 16 mm. Consider thyroid ultrasound correlation if not previously performed. Communications: Call Doctor Stroke Electronically signed by: Cam Dang M.D. 04/15/24 22:32 PM ECG Additional Comments: ECG. Normal sinus rhythm rate of 93. Possible left atrial enlargement nonspecific T wave abnormality. Code Status & VTE Plan VTE Prophylaxis Plan VTE Prophylaxis will be ordered: Yes
--- NOTE | 2024-04-16 03:05 | Magnetic Resonance Report ---
EXAM: MR brain wo con CLINICAL HISTORY: trouble walking and upset stomach ?stroke TECHNIQUE: Multisequential and multiplanar images of the brain were submitted for review without contrast. COMPARISON: None. FINDINGS: Generalized parenchymal atrophy is appreciated. Scattered foci of increased T2/FLAIR signal abnormality are identified within the bilateral periventricular and subcortical white matter, and are most commonly associated with chronic small vessel ischemic disease. No focal parenchymal lesions are seen. No intracranial hemorrhage, mass effect, midline shift, extra-axial collection, or hydrocephalus is identified. Ventricles, sulci, and basal cisterns are symmetric and normal in size and configuration. Diffusion-weighted sequences show no evidence of acute ischemic infarction. Midline structures including the pituitary gland, corpus callosum, pineal region, and brainstem are unremarkable. The craniovertebral junction is within normal limits. No calvarial abnormalities are identified. The paranasal sinuses and mastoid air cells are clear. Orbital structures are unremarkable. Appropriate flow voids are present in the visualized intracranial vessels. IMPRESSION: 1. No acute ischemia, space occupying mass, or other acute intracranial pathology is demonstrated. 2. Chronic small vessel ischemic disease. 3. Diffuse cerebral atrophy. Electronically signed by Henry Monahan 04-16-2024 03:05 AM
--- OUTSIDE RECORDS SUMMARY | 2024-04-16 03:49 | External Medical Summary | Summary of Care ---
Author Name Unknown Organization [facility] Address [address] [facility] [place] [address] Phone [phone] Care Team Providers Care Cook Apprentice Name Role Phone Riya Barber DO Primary Care Provider Reason for Visit * Reason Comments eRx-Medication Refill Encounter Details Date Type Department Care Team (Late st Contact Info) Description 03/25/2024 Refill Family Practice [facility] [address] [place] [address] Riya Barber DO [address] [place] [address] Allergies No known active allergiesdocumented as of this encounter (statuses as of 03/25/2024) Medications Aspirin 81 MG Tablet Take 1 Tablet by mouth in the morning. Active albuterol (VENTOLIN HFA) 108 (90 BASE) MCG/ACT inhaler 2p 4 times a day as needed or prior to exercise 1 Inhaler 1 08/16/19 18 Active betamethasone valerate (VALISONE) 0.1 % cream Apply topically to affected area. 07/08/19 20 Active Multiple Vitamins-[place] als (CENTRUM SILVER 50+WOMEN) TABS Take 1 Tab by mouth daily. Active metroNIDAZOLE 0.75 % External Cream (Metrocream) Apply topically to affected area daily. Active Raloxifene HCl 60 MG Oral Tablet (Evista) TAKE 1 TABLET BY MOUTH EVERY DAY 90 Tablet 3 04/29/19 24 Active Escitalopram Oxalate 10 MG Oral Tablet (Lexapro) TAKE 1 TABLET BY MOUTH EVERY DAY IN THE MORNING 90 Tablet 1 10/21/19 24 Active NIFEdipine ER Osmotic Release 30 MG Oral Tablet Extended Release 24 Hour (Procardia XL)Indications :HTN, goal below 140/90,Hyperte nsive kidney disease with stage 3a chronic kidney disease (HCC) TAKE 1 TABLET BY MOUTH EVERY DAY ON EMPTY STOMACH 90 Tablet 1 01/22/20 24 Active Atenolol 100 MG Oral Tablet (Tenormin)Ebonie cations:HTN, goal below 140/90,Hyperte nsive kidney disease with stage 3a chronic kidney disease (HCC) TAKE 1 TABLET BY MOUTH EVERY DAY IN THE MORNING 90 Tablet 1 01/22/20 24 Active Valsartan-hydr oCHLOROthiazid e 160-12.5 MG Oral Tablet (Diovan Hct)Indication s:HTN, goal below 140/90,Hyperte nsive kidney disease with stage 3a chronic kidney disease (HCC) TAKE 1 TABLET BY MOUTH EVERY DAY IN THE MORNING 90 Tablet 3 03/05/20 24 Active Rosuvastatin Calcium 40 MG Oral Tablet (Crestor)Indic ations:Dyslipi demia, goal LDL below 130 TAKE 1 TABLET BY MOUTH EVERY DAY 90 Tablet 3 03/05/20 24 Active Famotidine 20 MG Oral Tablet (Pepcid) TAKE 1 TABLET BY MOUTH EVERYDAY AT BEDTIME 90 Tablet 3 03/25/20 24 Active Famotidine 20 MG Oral Tablet (Pepcid) TAKE 1 TABLET BY MOUTH EVERYDAY AT BEDTIME 90 Tablet 1 10/01/19 24 024 Discontinued documented as of this encounter (statuses as of 03/25/2024) Active Problems Problem Noted Date Diagnosed Date Prediabetes 06/27/2020 Overview: Per Prediabetes protocol HTN, goal below 130/80 11/10/2019 Nausea vomiting and diarrhea 07/09/2019 Hypertensive kidney disease with stage 3 chronic kidney disease 08/15/2018 Abnormal electrocardiogram 08/28/2016 Asthma in remission 02/14/2016 Cholelithiasis documented as of this encounter (statuses as of 03/25/2024) Resolved Problems Problem Noted Date Diagnosed Date Resolved Date Hypertensive kidney disease with stage 3a chronic kidney disease 12/28/2021 01/04/2022 Hypokalemia 07/09/2019 11/10/2019 Dehydration 07/09/2019 11/10/2019 Leukocytosis 07/09/2019 11/10/2019 Hyperglycemia 07/09/2019 11/10/2019 Kidney disease, chronic, sta ge III (GFR 30-59 ml/min) 08/27/2016 02/14/2018 Overview: Per CKD protocol #1 CKD (chronic kidney disease) , symptom management only 08/14/2016 09/27/2016 HTN, goal below 150/90 02/14/201611/09 Abnormal results of liver function studies 02/14/2016 09/27/2016 documented as of this encounter (statuses as of 03/25/2024) Immunizations Name Administration Dates Next Due COVID-19 mRNA, LNP-s, No Pre serve, 2-Dose Series (Moderna) 06/08/2020,05/11/2020 Pneumococcal Conjugate Vacc, 13 Valent (Prevnar) 09/03/2014 Pneumococcal Polysaccharide PPV23 (Pneumovax) Seasonal Influenza, High Dos e, Trivalent, PF, IM (Fluzone HD) 01/29/2024 Seasonal Influenza, PF, 6 M & above, IM , (FluLaval or Fluzone) 02/14/2018,02/14/2017 Seasonal Influenza, Quadrivalent Hd (Fluzone Hd) 12/28/2021,02/16/2021 Seasonal Influenza, Quadrivalent, No Preserve, I M 02/14/2016,02/01/2015 Seasonal Influenza, Trivalen t, Adjuvanted, 65+ YRS, PF, (Fluad) 02/17/2019 TDAP (age 10 and older)(Boostrix) 11/23/2019 TDAP, Age 7 and older, IM (Adacel) 06/28/2009 Varicella Zoster Vaccine (Adult) 04/22/2009 Zoster Vaccine Recombinant (Shingrix) 11/10/2019 ,02/17/2019 documented as of this encounter Social History Tobacco Use Types Packs/Day Years Used Date Smoking Tobacco: Former Cigarettes 0.3 10 0 04/22/1967 - 04/22/1977 Smokeless Tobacco: Never Alcohol Use Standard Drinks/Week Comments Yes 0 (1 standard drink = 0.6 oz pur e alcohol) very rare, wine PHQ-2 Answer Date Recorded PHQ Adult Total Score 0 01/29/2024 Hunger Vital Sign Answer Date Recorded Within the past 12 months, y ou worried that your food would run out before you got the money to buy more. Never true 04/25/19 24 Within the past 12 months, t he food you bought just didn't last and you didn't have money to get more. Never true 04/25/2023 Childcare Answer Date Recorded Do you feel overwhelmed with taking care of a child, family member or friend? No 04/25/2023 Does your family need help f inding childcare? (Household - for ages 0-17 years) Not on file 04/25/2023 Clothing Answer Date Recorded Have you been unable to get clothing when it was really needed? No 04/25/2023 Is your family able to get c lothes or diapers when needed? (Household - for ages 0-17 years) Not on file 04/25/2023 Personal Safety Answer Date Recorded Do you feel unsafe or have concerns for your saf ety? No 04/25/2023 Do you have concerns for you r family's safety? (Household - for ages 0-17 years) Not on file 04/25/2023 Utilities Answer Date Recorded Do you have trouble paying y our heating, water, or electric bill? No 04/25/2023 Is your family able to pay t he heat, water, or electric bill? (Household - for ages 0-17 years) Not on file 04/25/2023 Does your family have access to good internet? (Household - for ages 0-17 years) Not on file 04/25/2023 Employment Status Answer Date Recorded Are you unemployed or without regular income? No 04/25/2023 Does the household have a re gular source of income? (Household - for ages 0-17 years) Not on file 04/25/2023 Social Connections Answer Date Recorded How often do you feel lonely or isolated from th ose around you? Never 04/25/2023 Financial Resource Strain Answer Date R ecorded Do you have any trouble payi ng for your medications, or do you think you might in the future? No 04/25/2023 Does your family have troubl e paying for medicine? (Household - for ages 0-17 years) Not on file 04/25/2023 Transportation Needs Answer Date Record ed READ ONLY Do you have troubl e getting a ride to medical visits or work? Never True 04/25/2023 Does your family have a hard time getting a ride to doctors visits? (Household - for ages 0-17 years) Not on file 04/25/2023 Has lack of transportation k ept you from medical appointments, meetings, work, or from getting things needed for daily living? Check all that apply. (Adult - for ages 18 years and over) Not on file 04/25/2023 Do you (or your family) have trouble finding or paying for a ride (transportation)? (Household - for ages 0-17 years) Not on file 04/25/2023 Housing Stability Answer Date Recorded Do you currently live in a s helter or have no steady place to sleep at night? No 04/25/2023 READ ONLY Do you think you a re at risk of becoming homeless? No 04/25/2023 Does your family worry about paying for your home or becoming homeless? (Household - for ages 0-17 years) Not on file 0 04/25/2023 Are you homeless or worried that you might be in the future? (Adult - for ages 18 years and over) Not on file Are you (or your family) you eless or worried that you might be in the future? (Household - for ages 0-17 years) Not on file Food Insecurity Answer Date Recorded Do you need food for this week? No 04/25/2023 Are you able to get enough f ood for your family? (Household - for ages 0-17 years) Not on file 04/25/2023 Does your family need food t his week? (Household - for ages 0-17 years) Not on file 04/25/2023 Do you always have enough fo od for your family? (Household - for ages 0-17 years) Not on file 04/25/2023 Comments No Sex and Gender Information Value Date Recorded Sex Assigned at Female 12/28/2021 10:52 AM EDT Legal Sex Female 5:58 AM EST Gender Identity Female 12/28/2021 10:52 AM EDT Sexual Orientation Straight 12/28/2021 10 :52 AM EDT documented as of this encounter Functional Status * Are you deaf or do you have serious difficulty hearing? Answer Date of Assessment Author No 07/09/2019 2:34 AM EDT Josh Nunez RN * Are you blind or do you have serious difficulty seeing, even when wearing glasses? Answer Date of Assessment Author No 07/09/2019 2:34 AM EDT Josh Nunez RN * Do you have serious difficulty walking or climbing stairs? (5 years old or older) Answer Date of Assessment Author No 07/09/2019 8:32 AM EDT Lyubov Patrick MSW * Do you have difficulty dressing or bathing? (5 years old or older) Answer Date of Assessment Author No 07/09/2019 2:34 AM EDT Josh Nunez RN * Because of a physical, mental, or emotional condition, do you have difficulty doing errands alone such as visiting a doctors office or shopping? (15 years old or older) Answer Date of Assessment Author No 07/09/2019 2:34 AM EDT Josh Nunez RN documented as of this encounter Mental Status * Because of a physical, mental, or emotional condition, do you have serious difficulty concentrating, remembering, or making decisions? (5 years old or older) Answer Entry Date Author No 07/09/2019 2:34 AM EDT Josh Nunez RN documented in this encounter Miscellaneous Notes * Telephone Encounter - Mariana Turner [facility] - 03/25/2024 5:25 PM ESTSigned Prescriptions: Disp Refills Famotidine 20 MG Oral Tablet (Pepcid) 90 Tab*3 Sig: TAKE 1 TABLET BY MOUTH EVERYDAY AT BEDTIMEAuthorizing Provider: RIYA BARBER User: MARIANA TURNER documented in this encounter Plan of Treatment Upcoming Encounters Date Type Department Care Team (Late st Contact Info) Description 01/05/2025 10:00 AM EDT Office Visit Family Practice [facility] [address] [place] [address] Riya Barber DO [address] [place] [address] Scheduled Procedures Name Priority Associated Diagnoses Date/Ti me COLONOSCOPY FLEXIBLE PROXIMAL DIAGNOSTIC Recall Colon cancer screening Health Maintenance Due Date Last Done Comments Adult Wellness Visit 12/02/2011 COVID-19 Vaccine ( season) 2023 06/08/2020, 05/11/2020 GFR 07/27/2024 01/27/2024, 05/24, 12/13/2021, Additional history exists Albumin/Creatinine Ratio 01/26/2025 024, 06/18/2022, 12/13/2021, Additional history exists CKD HGB USE SMARTSET 25098 01/26/202501/26, 01/27/2024, 06/18/2022, Additional history exists CKD PHOS USE SMARTSET 33631 01/26/20250 10/2023, 02/14/2021, 07/09/2019, Additional history exists HbA1c 01/26/2025 01/27/2024, 05/24, 12/13/2021, Additional history exists Depression Screening 01/28/2025 01/29/2024 DTap/Tdap Vaccines (3 - Td or Tdap) 11/22/2029 11/23/2019, 06/28/2009 DXA Scan 04/25/2030 04/25/2023, 08/23/2015 Pneumococcal Vaccine: 65+ Years Completed 09/03/2014, 03/31/2012 Zoster Vaccines Completed 11/10/2019, 01/21, 04/22/2009 Influenza Vaccine (FLU shot) Completed 12/2023, 12/28/2021, 02/16/2021, Additional history exists HPV (Gardasil) Vaccine Aged Out No lo nger eligible based on patient's age to complete this topic Hepatitis B Vaccine Aged Out No longe r eligible based on patient's age to complete this topic MENINGOCOCCAL (MENACTRA/MENVEO) Aged Out No longer eligible based on patient's age to complete this topic documented as of this encounter Medical Devices Not on filedocumented as of this encounter Advance Directives * Full Code (Latest Code Status on File) Date Activated Date Inactivated Comments 07/09/2019 2:37 AM 07/10/2019 3:03 PM This order r eflects the patients wishes and were consensually agreed upon. Question Answer Comments Discussion of Advance Directives occurred with: Patient Does the patient have a Living Will? No Does the patient have Health Care Power of Attor gladys? No Care Teams Cook Apprentice Relationship Specialty Start Date End Date Riya Barber DO [address] [place] [address] PCP - General Family Medicine 05/13/19 documented as of this encounter
--- OUTSIDE RECORDS SUMMARY | 2024-04-16 03:49 | External Medical Summary | Summary of Care ---
Author Name Unknown Organization [facility] Address [address] [facility] [address] Phone [phone] Care Team Providers Care Cardiac Sonographer Name Role Phone Riya Barber DO Primary Care Provider Reason for Visit * Reason Comments eRx-Medication Refill Encounter Details Date Type Department Care Team (Late st Contact Info) Description 04/09/2024 Refill Family Practice [facility] [address] [place] [address] Riya Barber DO [address] [place] [address] Allergies No known active allergiesdocumented as of this encounter (statuses as of 04/09/2024) Medications Aspirin 81 MG Tablet Take 1 Tablet by mouth in the morning. Active albuterol (VENTOLIN HFA) 108 (90 BASE) MCG/ACT inhaler 2p 4 times a day as needed or prior to exercise 1 Inhaler 1 08/16/19 18 Active betamethasone valerate (VALISONE) 0.1 % cream Apply topically to affected area. 07/08/19 20 Active Multiple Vitamins-[place] als (CENTRUM SILVER 50+WOMEN) TABS Take 1 Tab by mouth daily. Active metroNIDAZOLE 0.75 % External Cream (Metrocream) Apply topically to affected area daily. Active Raloxifene HCl 60 MG Oral Tablet (Evista) TAKE 1 TABLET BY MOUTH EVERY DAY 90 Tablet 3 04/29/19 24 Active NIFEdipine ER Osmotic Release 30 [...] BEDTIME 90 Tablet 3 03/25/20 24 Active Escitalopram Oxalate 10 MG Oral Tablet (Lexapro) TAKE 1 TABLET BY MOUTH EVERY DAY IN THE MORNING 90 Tablet 1 04/09/20 24 Active Escitalopram Oxalate 10 MG Oral Tablet (Lexapro) TAKE 1 TABLET BY MOUTH EVERY DAY IN THE MORNING 90 Tablet 1 10/21/19 24 024 Discontinued documented as of this encounter (statuses as of 04/09/2024) Active Problems Problem Noted Date Diagnosed Date Prediabetes 06/27/2020 Overview: Per Prediabetes protocol HTN, goal below 130/80 11/10/2019 Nausea vomiting and diarrhea 07/09/2019 Hypertensive kidney disease with stage 3 chronic kidney disease 08/15/2018 Abnormal electrocardiogram 08/28/2016 Asthma in remission 02/14/2016 Cholelithiasis documented as of this encounter (statuses as of 04/09/2024) Resolved Problems Problem Noted Date Diagnosed Date [...] as of this encounter (statuses as of 04/09/2024) Immunizations Name Administration Dates Next Due COVID-19 [...] encounter Miscellaneous Notes * Telephone Encounter - Leida You RPh - 04/09/2024 7:57 AM ESTSigned Prescriptions: Disp Refills Escitalopram Oxalate 10 MG Oral Tablet (Le*90 Tab*1 Sig: TAKE 1 TABLET BY MOUTH EVERY DAY IN THE MORNINGAuthorizing Provider: RIYA BARBER User: LEIDA YOU documented in this encounter Plan of Treatment Upcoming Encounters Date Type Department Care Team (Late st Contact Info) Description 01/05/2025 10:00 AM EDT Office Visit Family Practice [facility] [address] [place] [address] Riya Barber DO [address] [place] [address] Scheduled Procedures Name Priority Associated Diagnoses Date/Ti me COLONOSCOPY FLEXIBLE PROXIMAL DIAGNOSTIC Recall Colon cancer screening Health Maintenance Due Date Last Done Comments Adult Wellness Visit 12/02/2011 COVID-19 Vaccine ( season) 2023 06/08/2020, 05/11/2020 GFR 07/27/2024 01/27/2024, 05/24, 12/13/2021, Additional history exists Albumin/Creatinine Ratio 01/26/2025 024, 06/18/2022, 12/13/2021, Additional history exists CKD HGB USE SMARTSET 36050 01/26/202501/26, 01/27/2024, 06/18/2022, Additional history exists CKD PHOS USE SMARTSET 73933 01/26/202510/2023, 02/14/2021, 07/09/2019, Additional history exists HbA1c 01/26/2025 [...] Power of Attor gladys? No Care Teams Cardiac Sonographer Relationship Specialty Start Date End Date Riya Barber DO [address] [place] [address] PCP - General Family Medicine 05/13/19 documented as of this encounter
--- OUTSIDE RECORDS SUMMARY | 2024-04-16 03:50 | External Medical Summary | Summary of Care ---
Author Name Unknown Organization [facility] Address [address] [facility] [place] [address] Phone [phone] Care Team Providers Care Forestry Technician Name Role Phone Riya Barber DO Primary Care Provider Reason for Visit * Reason Comments eRx-Medication Refill Encounter Details Date Type Department Care Team (Late st Contact Info) Description 03/04/2024 Refill Family Practice [facility] [address] [place] [address] Riya Barber DO [address] [place] [address] HTN, goal below 140/90; Hypertensive kidney disease with stage 3a chronic kidney disease (HCC); Dyslipidemia, goal LDL below 130 Allergies No known active allergiesdocumented as of this encounter (statuses as of 03/05/2024) Medications Aspirin 81 MG Tablet Take 1 Tablet by mouth in the morning. Active albuterol (VENTOLIN HFA) 108 (90 BASE) MCG/ACT inhaler 2p 4 times a day as needed or prior to exercise 1 Inhaler 1 08/16/19 Active betamethasone valerate (VALISONE) 0.1 % cream Apply topically to affected area. 07/08/19 20 Active Multiple Vitamins-[place] als (CENTRUM SILVER 50+WOMEN) TABS Take 1 Tab by mouth daily. Active metroNIDAZOLE 0.75 % External Cream (Metrocream) Apply topically to affected area daily. Active Raloxifene HCl 60 MG Oral Tablet (Evista) TAKE 1 TABLET BY MOUTH EVERY DAY 90 Tablet 3 04/29/19 24 Active Famotidine 20 MG Oral Tablet (Pepcid) TAKE 1 TABLET BY MOUTH EVERYDAY AT BEDTIME 90 Tablet 1 10/01/19 24 Active Escitalopram Oxalate 10 MG Oral [...] DAY 90 Tablet 3 03/05/20 24 Active Valsartan-hydr oCHLOROthiazid e 160-12.5 MG Oral Tablet (Diovan Hct)Indication s:HTN, goal below 140/90,Hyperte nsive kidney disease with stage 3a chronic kidney disease (HCC) TAKE 1 TABLET BY MOUTH EVERY DAY IN THE MORNING 90 Tablet 1 09/07/19 24 024 Discontinued Rosuvastatin Calcium 40 MG Oral Tablet (Crestor)Indic ations:Dyslipi demia, goal LDL below 130 TAKE 1 TABLET BY MOUTH EVERY DAY 90 Tablet 1 09/10/19 24 024 Discontinued documented as of this encounter (statuses as of 03/05/2024) Active Problems Problem Noted Date Diagnosed Date Prediabetes 06/27/2020 Overview: Per Prediabetes protocol HTN, goal below 130/80 11/10/2019 Nausea vomiting and diarrhea 07/09/2019 Hypertensive kidney disease with stage 3 chronic kidney disease 08/15/2018 Abnormal electrocardiogram 08/28/2016 Asthma in remission 02/14/2016 Cholelithiasis documented as of this encounter (statuses as of 03/05/2024) Resolved Problems Problem Noted Date Diagnosed Date [...] as of this encounter (statuses as of 03/05/2024) Immunizations Name Administration Dates Next Due COVID-19 [...] Entry Date Author No 07/09/2019 2:34 AM CHAPARRITAT Josh Nunez RN documented in this encounter Miscellaneous Notes * Telephone Encounter - Valdez Osboren [facility] - 03/05/2024 12:17 PM EST Signed Prescriptions: Disp Refills Valsartan-hydroCHLOROthiazide 160-12.5 MG *90 Tab*3 Sig: TAKE 1 TABLET BY MOUTH EVERY DAY IN THE MORNINGAuthorizing Provider: RIYA BARBER User: VALDEZ OSBORNE Rosuvastatin Calcium 40 MG Oral Tablet (Cr*90 Tab*3 Sig: TAKE 1 TABLET BY MOUTH EVERY DAYAuthorizing Provider: RIYA BARBEROrderfarooq User: VALDEZ OSBORNE Electronically signed by Valdez Osborne [facility] at 03/05/2024 12:17 PM EST documented in this encounter Plan of Treatment Upcoming Encounters Date Type Department Care Team (Late st Contact Info) Description 01/05/2025 10:00 AM EDT Office Visit Family [facility] [address] [place] [address] Riya Barber, [address] [place] [address] Scheduled Procedures Name Priority Associated Diagnoses Date/Ti me COLONOSCOPY FLEXIBLE PROXIMAL DIAGNOSTIC Recall Colon cancer screening Health Maintenance Due Date Last Done Comments Adult Wellness Visit 12/02/2011 COVID-19 Vaccine ( season) 2023 06/08/2020, 05/11/2020 GFR 07/27/2024 01/27/2024, 05/24, 12/13/2021, Additional history exists Albumin/Creatinine Ratio 01/26/2025 024, 06/18/2022, 12/13/2021, Additional history exists CKD HGB USE SMARTSET 10718 01/26/202501/26, 01/27/2024, 06/18/2022, Additional history exists CKD PHOS USE SMARTSET 49505 01/26/202510/2023, 02/14/2021, 07/09/2019, Additional history exists HbA1c [...] Not on filedocumented as of this encounter Visit Diagnoses Diagnosis HTN, goal below 140/90 Unspecified essential hypertension Hypertensive kidney disease with stage 3a chronic kidney disease (HCC) Dyslipidemia, goal LDL below 130 Other and unspecified hyperlipidemia documented in this encounter Advance Directives * Full Code [...] Power of Attor gladys? No Care Teams Forestry Technician Relationship Specialty Start Date End Date Riya Barber DO [address] [place] [address] PCP - General Family Medicine 05/13/19 documented as of this encounter
--- OUTSIDE RECORDS SUMMARY | 2024-04-16 03:50 | External Medical Summary | Summary of Care ---
Author Name Unknown Organization [facility] Address [address] [place] [address] Phone [phone] Care Team Providers Care Office Machinery Or Equipment Installer Name Role Phone Vargas Barber DO Primary Care Provider Reason for Visit * Reason Comments Outpatient Testing Encounter Details Date Type Department Care Team ([facility] st Contact Info) Description 01/27/2024 10:00 AM EDT Laboratory Laboratory Patient Service [address] [phone] [address] HTN, goal below 140/90; Dyslipidemia, goal LDL below 130; Prediabetes; Hypertensive kidney disease with stage 3a chronic kidney disease (HCC) Allergies No known active allergiesdocumented as of this encounter (statuses as of 01/27/2024) Medications Medication Sig Dispensed Refills Start Date End Date Status Aspirin 81 MG Tablet Take 1 Tablet by mouth in the morning. Active albuterol (VENTOLIN HFA) 108 (90 BASE) MCG/ACT inhaler 2p 4 times a day as needed or prior to exercise 1 Inhaler 1 08/15/2017 Active betamethasone valerate (VALISONE) 0.1 % cream Apply topically to affected area. 07/08/2019 Active Multiple Vitamins-Minerals (CENTRUM SILVER 50+WOMEN) TABS Take 1 Tab by mouth daily. Active metroNIDAZOLE 0.75 % External Cream (Metrocream) Apply topically to affected area daily. Active Raloxifene HCl 60 MG Oral Tablet (Evista) TAKE 1 TABLET BY MOUTH EVERY DAY 90 Tablet 3 04/29/2023 Active Valsartan-hydroCHLOR Othiazide 160-12.5 MG Oral Tablet (Diovan Hct)Indications:HTN, goal below 140/90,Hypertensive kidney disease with stage 3a chronic kidney disease (HCC) TAKE 1 TABLET BY MOUTH EVERY DAY IN THE MORNING 90 Tablet 1 09/07/2023 Active Rosuvastatin Calcium 40 MG Oral Tablet (Crestor)Indications :Dyslipidemia, goal LDL below 130 TAKE 1 TABLET BY MOUTH EVERY DAY 90 Tablet 1 09/10/2023 Active Famotidine 20 MG Oral Tablet (Pepcid) TAKE 1 TABLET BY MOUTH EVERYDAY AT BEDTIME 90 Tablet 1 10/01/2023 Active Escitalopram Oxalate 10 MG Oral Tablet (Lexapro) TAKE 1 TABLET BY MOUTH EVERY DAY IN THE MORNING 90 Tablet 1 10/21/2023 Active NIFEdipine ER Osmotic Release 30 MG Oral Tablet Extended Release 24 Hour (Procardia XL)Indications:HTN, goal below 140/90,Hypertensive kidney disease with stage 3a chronic kidney disease (HCC) TAKE 1 TABLET BY MOUTH EVERY DAY ON EMPTY STOMACH 90 Tablet 1 01/22/2024 Active Atenolol 100 MG Oral Tablet (Tenormin)Indication s:HTN, goal below 140/90,Hypertensive kidney disease with stage 3a chronic kidney disease (HCC) TAKE 1 TABLET BY MOUTH EVERY DAY IN THE MORNING 90 Tablet 1 01/22/2024 Active documented as of this encounter (statuses as of 01/27/2024) Active Problems Problem Noted Date Diagnosed Date Prediabetes 06/27/2020 Overview: Per Prediabetes protocol HTN, goal below 130/80 11/10/2019 Nausea vomiting and diarrhea 07/09/2019 Hypertensive kidney disease with stage 3 chronic kidney disease 08/15/2018 Abnormal electrocardiogram 08/28/2016 Asthma in remission 02/14/2016 Cholelithiasis documented as of this encounter (statuses as of 01/27/2024) Resolved Problems Problem Noted Date Diagnosed Date [...] as of this encounter (statuses as of 01/27/2024) Immunizations Name Administration Dates Next Due COVID-19 mRNA, LNP-s, No Pre serve, 2-Dose Series (Moderna) 06/08/2020,05/11/2020 Pneumococcal Conjugate Vacc, 13 Valent (Prevnar) 09/03/2014 Pneumococcal Polysaccharide PPV23 (Pneumovax) Seasonal Influenza, PF, 6 M & above, [...] Date Recorded PHQ Adult Total Score 0 12/28/2021 Hunger Vital Sign Answer Date Recorded Within [...] ages 0-17 years) Not on file 04/25/2023 Sex and Gender Information Value Date Recorded Sex Assigned at Female 12/28/2021 10:52 AM EDT Gender Identity Female 12/28/2021 10:52 AM EDT Sexual Orientation Straight 12/28/2021 10 :52 AM EDT Job Start Date Occupation Industry Not on file Not on file Not on file documented as of this encounter Functional Status Functional Status Response Date of Assess ment Are you deaf or do you have serious difficulty h earing? No 07/09/2019 Are you blind or do you have serious difficulty seeing, even when wearing glasses? No 07/09/2019 Do you have serious difficul ty walking or climbing stairs? (5 years old or older) No 07/09/2019 Do you have difficulty dress ing or bathing? (5 years old or older) No 07/09/2019 Because of a physical, menta l, or emotional condition, do you have difficulty doing errands alone such as visiting a doctor s office or shopping? (15 years old or older) No 07/09/19 20 Cognitive Status Response Date of Assessm ent Because of a physical, menta l, or emotional condition, do you have serious difficulty concentrating, remembering, or making decisions? (5 years old or older) No 07/09/2019 documented as of this encounter Plan of Treatment Upcoming Encounters Date Type Department Care Team (Late st Contact Info) Description 01/29/2024 10:20 AM EDT Office Visit Family [facility] [address] [place] [address] Vargas Barber DO [address] [place] [address] Pending Results Name Type Priority Associated Diagnoses Date /Time CBC WITH WBC DIFFERENTIAL Lab Routine HTN, goal below 140/90 01/27/2024 8:30 AM EDT COMPREHENSIVE METABOLIC PANEL Lab Routine Dyslipidemia, goal LDL below 130 HTN, goal below 140/90 01/27/2024 8:30 AM EDT HEMOGLOBIN A1C Lab Routine Prediabetes 01/27/2024 8:30 AM EDT LIPID PANEL WITH DIRECT LDL IF TG IS HIGH Lab Routine Dyslipidemia, goal LDL below 130 01/27/2024 8:30 AM EDT PHOSPHORUS Lab Routine Hypertensive kidney disease with stage 3a chronic kidney disease (HCC) 01/27/2024 8:30 AM EDT CBC Lab Routine HTN, goal below 140/90 01/27/2024 8:30 AM EDT DIFFERENTIAL, AUTOMATED Lab Routine HTN, goal below 140/90 01/27/2024 8:30 AM EDT ALBUMIN / CREATININE RATIO, URINE Lab Routine Hypertensive kidney disease with stage 3a chronic kidney disease (HCC) 01/27/2024 8:38 AM EDT Scheduled Procedures Name Priority Associated Diagnoses Date/Ti me COLONOSCOPY FLEXIBLE PROXIMAL DIAGNOSTIC Recall Colon cancer screening Health Maintenance Due Date Last Done Comments Adult Wellness Visit 12/02/2011 CKD PHOS USE SMARTSET 76935 02/14/2022 01/21, 07/09/2019, 02/17/2019, Additional history exists GFR 12/16/2022 06/18/2022, 11/21, 02/14/2021, Additional history exists Depression Screening 12/28/2022 12/28/2021 Albumin/Creatinine Ratio 06/18/2023 023, 12/13/2021, 02/14/2021, Additional history exists CKD HGB USE SMARTSET 84925 06/18/202306/18, 06/18/2022, 12/13/2021, Additional history exists HbA1c 06/18/2023 06/18/2022, 11/21, 02/14/2021, Additional history exists COVID-19 Vaccine ( season) 2023 06/08/2020, 05/11/2020 Influenza Vaccine (FLU shot) (#1) 2023 12/28/2021, 02/16/2021, 02/03/2020, Additional history exists DTap/Tdap Vaccines (3 - Td or Tdap) 11/22/2029 11/23/2019, 06/28/2009 DXA Scan 04/25/2030 04/25/2023, 08/23/2015 Pneumococcal Vaccine: 65+ Years Completed 09/03/2014, 03/31/2012 Zoster Vaccines Completed 11/10/2019, 01/21, 04/22/2009 HPV (Gardasil) Vaccine Aged Out No lo [...] HTN, goal below 140/90 Unspecified essential hypertension Dyslipidemia, goal LDL below 130 Other and unspecified hyperlipidemia Prediabetes Other abnormal glucose Hypertensive kidney disease with stage 3a chronic kidney disease (HCC) documented in this encounter Advance Directives * [...] Power of Attor gladys? No Care Teams Office Machinery Or Equipment Installer Relationship Specialty Start Date End Date Vargas Barber DO [address] [place] [address] PCP - General Family Medicine 05/13/19 documented as of this encounter
--- OUTSIDE RECORDS SUMMARY | 2024-04-16 03:50 | External Medical Summary ---
Author Name Unknown Address Unknown Organization [id number]:[facility] [place] - [address] [facility] [address] Laboratory Report Ordering Provider Test Date Status BISHOP RITTER 01/27/2024 08:30:45 Final Observation Date Value Abnormality Reference (Units ) Status HbA1C 01/27/2024 08:30:45 5.8 Above high normal 4. 0-5.6 (%) Final The use of HbA1c to monitor glycemic status is based on normal hemoglobin and HbA composition. This test should not be used in patients with abnormal hemoglobin that affects the half life of the red blood cell or the in vivo glycation rates. Glucose, estimated average 01/27/2024 08:30:45 120 <126 (mg/dL) Final Performing Location [facility]ORY [facility] [place] - [address] [facility] [address]
--- OUTSIDE RECORDS SUMMARY | 2024-04-16 03:50 | External Medical Summary ---
Author Name Unknown Address Unknown Organization [id number][place] [place] [address] [place] [address] Laboratory Report Ordering Provider Test Date Status BISHOP RITTER 01/27/2024 08:30:45 Final Observation Date Value Abnormality Reference (Units ) Status Triglyceride 01/27/2024 08:30:45 48 <=174 ( mg/dL) Final Triglyceride Reference Range s (mg/dL):
<150 Acceptable
150-174 Borderline high
175-499 High
>=500 Very high Cholesterol 01/27/2024 08:30:45 115 <200 (mg /dL) Final Total Cholesterol Reference Ranges (mg/dL):
<200 Desirable
200-239 Borderline high
>=240 High HDL 01/27/2024 08:30:45 57 >49 (mg/dL ) Final HDL Cholesterol Reference Ra nges (mg/dL):
>=60 High (Desirable)
<50 Low (Undesirable) For Females
<40 Low (Undesirable) For Males NON-HDL CHOLESTEROL 01/27/2024 08:30:45 58 <=159 (mg/dL) Final Non-HDL Cholesterol Referenc e Range (mg/dL):
<100 Target level for high risk ASCVD patient
<130 Optimal for general population
130-159 Near optimal for general population
160-189 Borderline High
190-219 High
>=220 Very High LDL, (calculated) 01/27/2024 08:30:45 48 <= 129 (mg/dL) Final LDL Cholesterol Reference Ra nges (mg/dL):
<70 Target level for high risk ASCVD patient
<100 Optimal for general population
100-129 Near optimal for general population
130-159 Borderline high
160-189 High
>=190 Very high Performing Location [facility] [place] [address] [facility] [address]
--- OUTSIDE RECORDS SUMMARY | 2024-04-16 03:50 | External Medical Summary | Summary of Care ---
Author Name Unknown Organization [facility] Address [address] [facility] [place] [address] Phone [phone] Care Team Providers Care Occupational Physician Name Role Phone Vargas Barber DO Primary Care Provider Reason for Visit * Reason Onset Date Comments Physical-Exam Yearly exam, ear s congested Medication Administration 01/29/2024 Flu an d/or Pneumo Inj Encounter Details Date Type Department Care Team (Late st Contact Info) Description 01/29/2024 10:20 AM EDT Office Visit Family Practice [facility] [address] [place] [address] Vargas Barber DO [address] [place] [address] Prediabetes*; Risk and functional assessment; Need for prophylactic vaccination and inoculation against influenza; HTN, goal below 130/80; Hypertensive kidney disease with stage 3a chronic kidney disease (HCC); Dyslipidemia, goal LDL below 130 Allergies No known active allergiesdocumented as of this encounter (statuses as of 01/29/2024) Medications Medication Sig Dispensed Refills Start Date [...] as of this encounter (statuses as of 01/29/2024) Active Problems Problem Noted Date Diagnosed Date Prediabetes 06/27/2020 Overview: Per Prediabetes protocol HTN, goal below 130/80 11/10/2019 Nausea vomiting and diarrhea 07/09/2019 Hypertensive kidney disease with stage 3 chronic kidney disease 08/15/2018 Abnormal electrocardiogram 08/28/2016 Asthma in remission 02/14/2016 Cholelithiasis documented as of this encounter (statuses as of 01/29/2024) Resolved Problems Problem Noted Date Diagnosed Date [...] as of this encounter (statuses as of 01/29/2024) Immunizations Name Administration Dates Next Due COVID-19 [...] on file documented as of this encounter Last Filed Vital Signs Vital Sign Reading Time Taken Comments Blood Pressure 128/68 01/29/2024 10:14 AM EDT Pulse 72 01/29/2024 10:14 AM EDT Temperature 36.4 C (97.5 F) 01/29/2024 10:14 AM E DT Respiratory Rate 16 01/29/2024 10:14 AM EDT Oxygen Saturation - - Inhaled Oxygen Concentration - - Weight 64 kg (141 lb) 01/29/2024 10:14 AM EDT Height 157.5 cm (5' 2") 01/29/2024 10:14 AM EDT Body Mass Index 25.79 01/29/2024 10:14 AM EDT documented in this encounter Functional Status Functional Status Response [...] No 07/09/2019 documented as of this encounter Patient Instructions * Patient Instructions* Gillian Crespo RN - 01/29/2024 10:14 AM EDT Patient Instructions - Fall Prevention (This education is for all patients over 65 regardless of symptoms) Remember to take your current medications as prescribed. In order to prevent falls, you are encouraged to: Exercise Utilize assistive/adaptive devices Avoid multifocal lenses when walking Avoid hazards in home Maintain a regular toileting schedule Any questions please contact our office. Preventing Falls in the Home (This education is for all patients over 65 regardless of symptoms) As you get older, falls are more likely. Thats because your reaction time slows. Your muscles and joints may also get stiffer, making them less flexible. Illness, medications, and vision changes can also affect your balance. A fall could leave you unable to live on your own. To make your home safer, follow these tips: Floors Put nonskid pads under area rugs Remove throw rugs Replace worn floor coverings Tack carpets firmly to each step on carpeted stairs. Put nonskid strips on the edges of uncarpeted stairs Keep floors and stairs free of clutter and cords Arrange furniture so there are clear pathways Clean up any spills right away Bathrooms Install grab bars in the tub or shower Apply nonskid strips or put a nonskid rubber mat in the tub or shower Sit on a bath chair to bathe Use bathmats with nonskid backing Lighting Keep a flashlight in each room Put a nightlight along the pathway between the bedroom and the bathroom [employer] Patient Education Copyright 2008 - 2010 [employer] except where otherwise noted Preventing Falls: Exercises to Improve Balance, Flexibility, Strength, and Staying Power (This education is for all patients over 65 regardless of symptoms) Certain types of exercises may help make you less likely to fall. Try the ones below. Or do other exercises that your healthcare provider suggests. Depending on your health, you may need to start slowly. Dont let that stop you. Even small amounts of exercise can help you. Be sure to talk to yourhealthcare provider before starting any exercise program. Improve Balance Many types of exercise can help improve balance. Cleve chi and yoga are good examples. Heres another one to try. You can do it anytime and almost anywhere. Stand next to a counter or solid support. Push yourself up onto your tiptoes. Hold for 5 seconds. If you start to lose your balance, hold on to the counter. Rest and repeat 5 times. Work up to holding for 20 to 30 seconds, if you can. Increase Flexibility Being more flexible makes it easier for you to move around safely. Try exercises like the seated hamstring stretch. Sit in a chair and put one foot on a stool. Straighten your leg and reach with both hands down either side of your leg. Reach as far down your leg as you can. Hold for about 20 seconds. Go back to the starting position. Then repeat 5 times. Switch legs. Build Strength Resistance exercises help build strength. You can do them without equipment. Or you can use weights, elastic bands, or special machines. One such exercise is called the biceps curl. You can hold a 1 pound weight or even a can of soup. Do this exercise at least 3 times a week. Strive for everyday. Sit up straight in a chair. Keep your elbow close to your body and your wrist straight. Bend your arm, moving your hand up to your shoulder. Then slowly lower your arm. Repeat 5 times. Switch to the other arm. Build Your Staying Power Aerobic exercises make your heart and lungs stronger so you can keep moving longer. Walking and swimming are two of the best types of exercises you can do. Using a stationary bike is great, too. Find an aerobic exercise that you enjoy. Start slowly and build up. Even 5 minutes is helpful. Aimfor a goal of 30 minutes, at least 3 times a week. You dont have to do 30 minutes in one session. Break it up and walk a little throughout the day. More Helpful Tips Start easy. Slowly work up to doing more. Talk with your healthcare provider about the best exercises for you. Call senior centers or health clubs about exercise programs. If needed, have a family member watch you walk every so often to check your stability. Exercise with a friend. Choose an activity you both enjoy. Try exercises that you can do anytime, anywhere. Here are two examples. Have someone with you when you first try these: Practice walking by placing one foot right in front of the other. Stand up and sit down 10 times. Repeat this throughout the day. Bertin Patient Education Copyright 2008 - 2010 [employer] except where otherwise noted. Preventing Falls: Moving Safely Using a Cane or Walker (This education is for all patients over 65 regardless of symptoms) Keep the cane away from your feet so you dont trip. A walking aid, such as a cane or walker, can help you stay more independent and avoid falls. Remember to keep your walking aid within easy reach when youre in a chair or in bed. And learn how to use it safely so you dont injure yourself. Using a Cane If you have a stronger side, hold the cane on that side. Get your balance. Move the cane and your weaker leg forward. Support your weight on both the cane and your weaker side. Step with your stronger leg. Start again from step 1. If youre using a folding walker, be sure you know how to lock it open. Check that its locked open before each use. Using a Walker Roll the walker (or lift it, if youre using one without wheels) forward about 12 inches. Step forward with your weaker leg first. Use the walker to help keep your balance. Bring your other foot forward to the center of the walker. Start again from step 1. Helpful Tips Check with your healthcare provider about the right walking aid to use. Ask about a walker with a seat attached. Check the tips of your cane or walker to make sure they have nonskid covers. Move slowly from room to room. Dont troncoso. Sit down to get dressed. Use a justin pack or backpack to keep your hands free. Get help for jobs that mean climbing, even on a stepstool. [employer] Patient Education Copyright 2008 - 2010 [employer] except where otherwise noted. Urinary Incontinence Plan of Care Documentation: (This education is for all patients over 65 regardless of symptoms) Current medications reconciled. Patient encouraged to: Practice kegal exercises Provide education materials Use the restroom every 2 hours throughout the day Limit caffeine, alcohol, spicy foods and acidic foods Keep a bladder diary Limit fluid intake 3-4 hours before bed Lose weight Prevent constipation Take fluid pills at a time when you can get to the bathroom quickly Control sugar better if diabetic Limit fluid intake to 60 oz. per day Wear support stockings (TEDs)if you have edema Gillian Crespo RN 01/29/2024 Kegel Exercises Kegel exercises dont require special clothing or equipment. Theyre easy to learn and simple to do. And if you do them right, no one can tell youre doing them, so they can be done almost anywhere. Your doctor, nurse, or physical therapist can answer any questions you have and help you get started. A Weak Pelvic Floor The pelvic floor muscles may weaken due to aging, and vaginal childbirth, injury, surgery, chronic cough, or lack of exercise. If the pelvic floor is weak, your bladder and other pelvic organs may sag out of place. The urethra may also open too easily and allow urine to leak out. Kegel exercises can help you strengthen your pelvic floor muscles so they can better support the pelvic organs and control urine flow. How Kegel Exercises Are Done Try each of the Kegel exercises described below. When youre doing them, try not to move your leg, buttock, or stomach muscles. While youre urinating, try to stop the flow of urine. Start and stop it as often as you can. Contract as if you were stopping your urine stream, but do it when youre not urinating. Tighten your rectum as if trying not to pass gas. Contract your anus, but dont move your buttocks. Helpful Hints Do your Kegels as often as you can. The more you do them, the faster youll feel the results. Pick an activity you do often as a reminder. For instance, do your Kegels every time you sit down. Tighten your pelvic floor before you sneeze, get up from a chair, cough, laugh, or lift. This protects your pelvic floor from injury and can help prevent urine leakage. Try to hold each Kegel for a slow count to five. You probably wont be able to hold them for thatlong at first, but keep practicing. It will get easier as your pelvic floor gets stronger. Eventually, special weights that you place in your vagina may be recommended to help make your Kegels even more effective. Bertin Patient Education Copyright 2008 - 2010 Bertin except where otherwise noted. Here are some helpful tips for your urinary incontinence: (This education is for all patients over 65 regardless of symptoms) Practice Kegel exercises Use the restroom every 2 hours throughout the day Limit caffeine, alcohol, spicy foods, and acidic foods Keep a bladder diary Limit fluid intake 3-4 hours before bed Lose weight Prevent constipation Take fluid pills at a time when can get to the bathroom quickly Control sugar better if diabetic Limit fluid intake to 60 oz. per day Any questions, please feel free to contact our office. documented in this encounter Progress Notes * Vargas Barber, - 01/29/2024 10:25 AM EDT Images from the original note were not included. Assessment and Plan Prediabetes Stable, down a little since last check Continue to monitor - COMPREHENSIVE METABOLIC PANEL; Future - HEMOGLOBIN A1C; Future Risk and functional assessment Need for prophylactic vaccination and inoculation against influenza - INFLUENZA VAC., TRIVALENT, HD, PF, 65 AND ABOVE, 0.5 ML IM (FLUZONE HD) HTN, goal below 130/80 - CBC WITH WBC DIFFERENTIAL; Future - ALBUMIN / CREATININE RATIO, URINE; Future Hypertensive kidney disease with stage 3a chronic kidney disease (HCC) stable Dyslipidemia, goal LDL below 130 - COMPREHENSIVE METABOLIC PANEL; Future - LIPID PANEL WITH DIRECT LDL IF TG IS HIGH; Future History of Present Illness Sapphire Hathaway is a 78 year old female that presents for Physical-Exam (Yearly exam, ears congested)and Medication Administration (Flu and/or Pneumo Inj) Presents in f/u today Has been doing very well overall Is active, but sees room to improve walking And activity level Physical Exam Vitals: 01/29/24 1014 Temp: 36.4 C (97.5 F) Pulse: 72 Resp: 16 BP: 128/68 BMI: 25.78 Physical Exam Constitutional: Appearance: Normal appearance. HENT: Head: Normocephalic and atraumatic. Eyes: Extraocular Movements: Extraocular movements intact. Pupils: Pupils are equal, round, and reactive to light. Cardiovascular: Rate and Rhythm: Normal rate and regular rhythm. Pulmonary: Effort: Pulmonary effort is normal. Breath sounds: Normal breath sounds. Neurological: General: No focal deficit present. Mental Status: She is alert and oriented to person, place, and time. Psychiatric: Mood and Affect: Mood normal. Behavior: Behavior normal. Wrap-Up Follow Up: Return in about 8 months (around 09/28/2024). Time: Total time today was 44 minutes excluding any time spent in the performance of separately billed services. .AMBCONSENT * Gillian Crespo RN - 01/29/2024 10:14 AM EDT Urinary Incontinence Plan of Care Documentation: (This education is for all patients over 65 regardless of symptoms) Current medications reconciled. Patient encouraged to: Practice kegal exercises Provide education materials Use the restroom every 2 hours throughout the day Limit caffeine, alcohol, spicy foods and acidic foods Keep a bladder diary Limit fluid intake 3-4 hours before bed Lose weight Prevent constipation Take fluid pills at a time when you can get to the bathroom quickly Control sugar better if diabetic Limit fluid intake to 60 oz. per day Wear support stockings (TEDs)if you have edema Gillian Crespo RN 01/29/2024 PRE - ADMINISTRATION DOCUMENTATION Are you experiencing any cold symptoms or fever? No Have you had Guillain-Liberty Syndrome (an illness that causes paralysis) within the last 6 weeks? No Have you had the flu shot in the past? YES Have you ever had a reaction to the flu shot? No Gillian Crespo RN, 01/29/2024 10:18 AM Immunization Administration Documentation Time Out Procedure Performed: Yes Patient Identified (Ask Name/Date of ): Yes Does the patient have a fever greater than 101 degrees today? No Patient allergic to latex? No VFC Stock: No Immunization(s) verified: Yes, Immunization Name: Flu, VIS Sheet(s) given: Yes Verified Side and Site: Yes Verified Shot(s) with Parent(s)/Patient: Yes documented in this encounter Plan of Treatment Upcoming Encounters Date Type Department Care Team (Late st Contact Info) Description 01/05/2025 10:00 AM EDT Office Visit Family Practice [facility] [address] [place] [address] Vargas Barber DO [address] [place] [address] Scheduled Orders Name Type Priority Associated Diagnoses Orde r Schedule CBC WITH WBC DIFFERENTIAL Lab Routine HTN, goal below 130/80 Expected: 01/29/2024 (Approximate), Expires: 01/28/2025 COMPREHENSIVE METABOLIC PANEL Lab Routine Prediabetes Dyslipidemia, goal LDL below 130 Expected: 01/29/2024 (Approximate), Expires: 01/28/2025 HEMOGLOBIN A1C Lab Routine Prediabetes Expected: 01/29/2024 (Approximate), Expires: 01/28/2025 ALBUMIN / CREATININE RATIO, URINE Lab Routine HTN, goal below 130/80 Expected: 01/29/2024 (Approximate), Expires: 01/28/2025 LIPID PANEL WITH DIRECT LDL IF TG IS HIGH Lab Routine Dyslipidemia, goal LDL below 130 Expected: 01/29/2024, Expires: 01/28/2025 Scheduled Procedures Name Priority Associated Diagnoses Date/Ti me COLONOSCOPY FLEXIBLE PROXIMAL DIAGNOSTIC Recall Colon cancer screening Health Maintenance Due Date Last Done Comments Adult Wellness Visit 12/02/2011 COVID-19 Vaccine ( season) 2023 06/08/2020, 05/11/2020 GFR 07/27/2024 01/27/2024, 05/24, 12/13/2021, Additional history exists Albumin/Creatinine Ratio 01/26/2025 024, 06/18/2022, 12/13/2021, Additional history exists CKD HGB USE SMARTSET 82148 01/26/202501/26, 01/27/2024, 06/18/2022, Additional history exists CKD PHOS USE SMARTSET 52017 01/26/2025 100 10/2023, 02/14/2021, 07/09/2019, Additional history exists HbA1c [...] as of this encounter Visit Diagnoses Diagnosis Prediabetes- Primary Other abnormal glucose Risk and functional assessment Screening for unspecified condition Need for prophylactic vaccination and inoculation against influenza HTN, goal below 130/80 Unspecified essential hypertension Hypertensive kidney disease with [...] Power of Attor gladys? No Care Teams Occupational Physician Relationship Specialty Start Date End Date Vargas Barber DO [address] [place] [address] PCP - General Family Medicine 05/13/19 documented as of this encounter
--- OUTSIDE RECORDS SUMMARY | 2024-04-16 03:50 | External Medical Summary | Summary of Care ---
Author Name Unknown Organization [facility] Address [address] [place] [address] Phone [phone] Care Team Providers Care Knife Blade Polisher Name Role Phone Vargas Barber DO Primary Care Provider Reason for Visit * Reason Comments Outpatient Testing Encounter Details Date Type Department Care Team ([facility] st Contact Info) Description 01/27/2024 10:00 AM EDT Laboratory Laboratory Patient Service [address] [phone] [address] HTN, goal below 140/90; Dyslipidemia, goal LDL [...] 01/29/2024 10:20 AM EDT Office Visit Family [facility] [address] [place] [address] Vargas Barber DO [address] [place] [address] Pending Results Name Type Priority Associated Diagnoses [...] Wellness Visit 12/02/2011 CKD PHOS USE SMARTSET 32956 02/14/2022 01/21, 07/09/2019, 02/17/2019, Additional history exists GFR 12/16/2022 06/18/2022, 11/21, 02/14/2021, Additional history exists Depression Screening 12/28/2022 12/28/2021 Albumin/Creatinine Ratio 06/18/2023 023, 12/13/2021, 02/14/2021, Additional history exists CKD HGB USE SMARTSET 34115 06/18/202306/18, 06/18/2022, 12/13/2021, Additional history exists HbA1c [...] Power of Attor gladys? No Care Teams Knife Blade Polisher Relationship Specialty Start Date End Date Vargas Barber DO [address] [place] [address] PCP - General Family Medicine 05/13/19 documented as of this encounter
--- OUTSIDE RECORDS SUMMARY | 2024-04-16 03:50 | External Medical Summary | Summary of Care ---
Author Name Unknown Organization [facility] Address [address] [facility] [place] [address] Phone [phone] Care Team Providers Care Knot Picker Cloth Name Role Phone Vargas Barber DO Primary Care Provider Encounter Details Date Type Department Care Team (Late st Contact Info) Description 02/12/2024 Orders Only Family Practice [facility] [address] [place] [address] Vargas Barber DO [address] [place] [address] Allergies No known active allergiesdocumented as of this encounter (statuses as of 02/12/2024) Medications Medication Sig Dispensed Refills Start Date [...] as of this encounter (statuses as of 02/12/2024) Active Problems Problem Noted Date Diagnosed Date Prediabetes 06/27/2020 Overview: Per Prediabetes protocol HTN, goal below 130/80 11/10/2019 Nausea vomiting and diarrhea 07/09/2019 Hypertensive kidney disease with stage 3 chronic kidney disease 08/15/2018 Abnormal electrocardiogram 08/28/2016 Asthma in remission 02/14/2016 Cholelithiasis documented as of this encounter (statuses as of 02/12/2024) Resolved Problems Problem Noted Date Diagnosed Date [...] as of this encounter (statuses as of 02/12/2024) Immunizations Name Administration Dates Next Due COVID-19 [...] 04/25/2023 Does the household have a re lar source of income? (Household - for ages [...] Description 01/05/2025 10:00 AM EDT Office Visit [facility] [address] [place] [address] Vargas Barber, [address] [place] [address] Scheduled Procedures Name Priority Associated Diagnoses Date/Ti me COLONOSCOPY FLEXIBLE PROXIMAL DIAGNOSTIC Recall Colon cancer screening Health Maintenance Due Date Last Done Comments Adult Wellness Visit 12/02/2011 COVID-19 Vaccine ( season) 2023 06/08/2020, 05/11/2020 GFR 07/27/2024 01/27/2024, 05/24, 12/13/2021, Additional history exists Albumin/Creatinine Ratio 01/26/2025 024, 06/18/2022, 12/13/2021, Additional history exists CKD HGB USE SMARTSET 14453 01/26/202501/26, 01/27/2024, 06/18/2022, Additional history exists CKD PHOS USE SMARTSET 51283 01/26/202510/2023, 02/14/2021, 07/09/2019, Additional history exists HbA1c [...] Not on filedocumented as of this encounter Procedures Procedure Name Priority Date/Time Associated Diagnosis Comments MAMMOGRAM SCREENING BILATERAL Routine 01/24/2024 documented in this encounter Results * MAMMOGRAM SCREENING BILATERAL (01/24/2024) Anatomical Region Laterality Modality Breast Bilateral Other 01/24/2024 Vargas Barber DO RAD MAMMOGRAPHY documented in this encounter Advance Directives * [...] Power of Attor gladys? No Care Teams Knot Picker Cloth Relationship Specialty Start Date End Date Vargas Barber DO [address] [place] [address] PCP - General Family Medicine 05/13/19 documented as of this encounter
--- OUTSIDE RECORDS SUMMARY | 2024-04-16 03:50 | External Medical Summary | Summary of Care ---
Author Name Unknown Organization [facility] Address [address] [facility] [place] [address] Phone [phone] Care Team Providers Care Community Development Manager Name Role Phone Vargas Barber DO Primary Care Provider Encounter Details Date Type Department Care Team (Late st Contact Info) Description 02/04/2024 Orders Only PATIENT PORTAL DO NOT DELETE THIS DEPT USED BY [place] [id number] Allergies No known active allergiesdocumented as of this encounter (statuses as of 02/04/2024) Medications Medication Sig Dispensed Refills Start Date [...] as of this encounter (statuses as of 02/04/2024) Active Problems Problem Noted Date Diagnosed Date Prediabetes 06/27/2020 Overview: Per Prediabetes protocol HTN, goal below 130/80 11/10/2019 Nausea vomiting and diarrhea 07/09/2019 Hypertensive kidney disease with stage 3 chronic kidney disease 08/15/2018 Abnormal electrocardiogram 08/28/2016 Asthma in remission 02/14/2016 Cholelithiasis documented as of this encounter (statuses as of 02/04/2024) Resolved Problems Problem Noted Date Diagnosed Date [...] as of this encounter (statuses as of 02/04/2024) Immunizations Name Administration Dates Next Due COVID-19 [...] No 04/25/2023 Does the household have a [facility] source of income? (Household - for ages [...] 01/05/2025 10:00 AM EDT Office Visit Family [facility] [address] [place] [address] Vargas Barber, [address] [place] [address] Scheduled Procedures Name Priority Associated Diagnoses Date/Ti me COLONOSCOPY FLEXIBLE PROXIMAL DIAGNOSTIC Recall Colon cancer screening Health Maintenance Due Date Last Done Comments Adult Wellness Visit 12/02/2011 COVID-19 Vaccine ( season) 2023 06/08/2020, 05/11/2020 GFR 07/27/2024 01/27/2024, 05/24, 12/13/2021, Additional history exists Albumin/Creatinine Ratio 01/26/2025 024, 06/18/2022, 12/13/2021, Additional history exists CKD HGB USE SMARTSET 49279 01/26/202501/26, 01/27/2024, 06/18/2022, Additional history exists CKD PHOS USE SMARTSET 52740 01/26/202510/2023, 02/14/2021, 07/09/2019, Additional history exists HbA1c [...] Power of Attor gladys? No Care Teams Community Development Manager Relationship Specialty Start Date End Date Vargas Barber DO [address] [place] [address] PCP - General Family Medicine 05/13/19 documented as of this encounter
--- OUTSIDE RECORDS SUMMARY | 2024-04-16 03:50 | External Medical Summary ---
Author Name Unknown Address Unknown Organization K01:[place] [place] [facility] [address] [place] [address] Laboratory Report Ordering Provider Test Date Status BISHOP RITTER 01/27/2024 08:38:26 Final Normal: <30 mg/g creatinine< br/>High: 30-300 mg/g creatinine
Very High: >300 mg/g creatinine
Nephrotic: >2200 mg/g creatinine Observation Date Value Abnormality Reference (Units ) Status Albumin, Urine 01/27/2024 08:38:26 4.00 (mg/dL) Final Creatinine, Urine 01/27/2024 08:38:26 88 (mg/dL) Final Albumin/Creatinine [Mass Ratio] in Urine 01/27/2024 08:38:26 45 Above high normal <30 (mg/g Creat) Final Performing Location LAB[facility]ORY [facility] [place] [address] [place] [address]
--- OUTSIDE RECORDS SUMMARY | 2024-04-16 03:50 | External Medical Summary ---
Author Name Unknown Address Unknown Organization K01:LABORATORY [facility] [place] - [address] [facility]. [place] [address] Laboratory Report Ordering Provider Test Date Status BISHOP RITTER 01/27/2024 08:30:45 Final Observation Date Value Abnormality Reference (Units ) Status BUN 01/27/2024 08:30:45 17 6-20 (mg/dL) Final Creatinine 01/27/2024 08:30:45 0.9 0.5-1.0 (mg/dL) Final Glomerular filtration rate/1.73 sq M.predicted [Volume Rate/Area] in Serum, Plasma or Blood by Creatinine-based formula (CKD-EPI) 01/27/2024 08:30:45 62 >=60 (mL/min) Final eGFR is calculated based on the CKD-EPI 2020 equation. Sodium 01/27/2024 08:30:45 135 135-146 (m mol/L) Final Potassium 01/27/2024 08:30:45 4.3 3.5-5.1 (m mol/L) Final Cl 01/27/2024 08:30:45 92 Below low normal 98- 107 (mmol/L) Final CO2 01/27/2024 08:30:45 31 22-32 (mmo l/L) Final Anion gap 01/27/2024 08:30:45 12 7-15 (mmol /L) Final Glucose 01/27/2024 08:30:45 97 70-120 (mg /dL) Final Albumin 01/27/2024 08:30:45 4.7 3.8-5.0 (g /dL) Final AST (Aspartate aminotransferase) 01/27/2024 08:30:45 38 Above high normal 10-35 (U/L) Final Alk Phos 01/27/2024 08:30:45 57 35-130 (U/ L) Final Bilirubin, Total 01/27/2024 08:30:45 0.6 <=1 .2 (mg/dL) Final Calcium 01/27/2024 08:30:45 9.9 8.4-10.2 ( mg/dL) Final Protein 01/27/2024 08:30:45 6.7 6.0-8.3 (g /dL) Final ALT (Alanine aminotransferase) 01/27/2024 08:30:45 24 10-35 (U/L) Evans shanks Performing Location LABORATORY [facility] [place] - [address] [facility] [address]
--- OUTSIDE RECORDS SUMMARY | 2024-04-16 03:51 | External Medical Summary ---
Author Name Unknown Address Unknown Organization K01:LABORATORY [facility] [place] - [facility] [address] [facility] [place] [id number] Laboratory Report Ordering Provider Test Date Status BISHOP RITTER 01/27/2024 08:30:45 Final Observation Date Value Abnormality Reference (Units ) Status WBC, Total 01/27/2024 08:30:45 7.03 4.00-10.80 (K/uL) Final RBC 01/27/2024 08:30:45 4.70 3.85-5.15 (M/uL) Final Hemoglobin 01/27/2024 08:30:45 15.1 12.0-15.3 (g/dL) Final HCT 01/27/2024 08:30:45 44.9 36.0-45.2 (%) Final MCV 01/27/2024 08:30:45 95.5 81.5-97.5 (fL) Final MCH 01/27/2024 08:30:45 32.1 27.0-34.0 (pg) Final MCHC 01/27/2024 08:30:45 33.6 32.0-36.0 (g/dL) Final RDW 01/27/2024 08:30:45 12.1 11.5-15.5 (%) Final Platelets 01/27/2024 08:30:45 202 140-400 (K/uL) Final MPV 01/27/2024 08:30:45 12.3 6.6-11.1 (fL) Final Nucleated erythrocytes/100 leukocytes [Ratio] in Blood by Automated count 01/27/2024 08:30:45 0 <=0 (/100 WBCs) Final Performing Location LABORATORY [facility] [place] - [address] [facility] [id number]
--- OUTSIDE RECORDS SUMMARY | 2024-04-16 03:51 | External Medical Summary | Summary of Care ---
Author Name Unknown Organization [facility] Address [address] [place] [address] Phone [phone] Care Team Providers Care Insulation Worker Apprentice Name Role Phone Vargas Barber DO Primary Care Provider Encounter Details Date Type Department Care Team (Late st Contact Info) Description 01/13/2024 Orders Only Outcomes Research Department [address] [place] [address] Colette Thurston CHRA [employer] [facility] Other*[id number] Allergies No known active allergiesdocumented as of this encounter (statuses as of 01/13/2024) Medications Medication Sig Dispensed Refills Start Date [...] EVERY DAY 90 Tablet 3 04/29/2023 Active NIFEdipine ER Osmotic Release 30 MG Oral Tablet Extended Release 24 Hour (Procardia XL)Indications:HTN, goal below 140/90,Hypertensive kidney disease with stage 3a chronic kidney disease (HCC) TAKE 1 TABLET BY MOUTH EVERY DAY ON EMPTY STOMACH 90 Tablet 1 07/25/2023 Active Atenolol 100 MG Oral Tablet (Tenormin)Indication s:HTN, goal below 140/90,Hypertensive kidney disease with stage 3a chronic kidney disease (HCC) TAKE 1 TABLET BY MOUTH EVERY DAY IN THE MORNING 90 Tablet 1 07/25/2023 Active Valsartan-hydroCHLOR Othiazide 160-12.5 MG Oral Tablet [...] THE MORNING 90 Tablet 1 10/21/2023 Active documented as of this encounter (statuses as of 01/13/2024) Active Problems Problem Noted Date Diagnosed Date Prediabetes 06/27/2020 Overview: Per Prediabetes protocol HTN, goal below 130/80 11/10/2019 Nausea vomiting and diarrhea 07/09/2019 Hypertensive kidney disease with stage 3 chronic kidney disease 08/15/2018 Abnormal electrocardiogram 08/28/2016 Asthma in remission 02/14/2016 Cholelithiasis documented as of this encounter (statuses as of 01/13/2024) Resolved Problems Problem Noted Date Diagnosed Date [...] as of this encounter (statuses as of 01/13/2024) Immunizations Name Administration Dates Next Due COVID-19 [...] No 04/25/2023 Does the household have a [facility] source of income? (Household - for ages [...] Care Team (Late st Contact Info) Description 02/13/2024 5:40 PM EDT Office Visit [facility] [address] [place] [address] Vargas Barber DO [address] [place] [address] Scheduled Orders Name Type Priority Associated Diagnoses Orde r Schedule MYCODE SUBSEQUENT ADULT Lab Routine MyCode Research Other*[id number] Every 6 Months for 2 Occurrences starting 01/13/2024 until 02/01/2025 Scheduled Procedures Name Priority Associated Diagnoses Date/Ti me COLONOSCOPY FLEXIBLE PROXIMAL DIAGNOSTIC Recall Colon cancer screening Health Maintenance Due Date Last Done Comments Adult Wellness Visit 12/02/2011 CKD PHOS USE SMARTSET 30797 02/14/202201/21, 07/09/2019, 02/17/2019, Additional history exists GFR 12/16/2022 06/18/2022, 11/21, 02/14/2021, Additional history exists Depression Screening 12/28/2022 12/28/2021 Albumin/Creatinine Ratio 06/18/2023 023, 12/13/2021, 02/14/2021, Additional history exists CKD HGB USE SMARTSET 74099 06/18/202306/18, 06/18/2022, 12/13/2021, Additional history exists HbA1c 06/18/2023 06/18/2022, 11/21, 02/14/2021, Additional history exists COVID-19 Vaccine ( season) 2023 06/08/2020, 05/11/2020 Influenza Vaccine (FLU shot) (#1) 2023 12/28/2021, 02/16/2021, 02/03/2020, Additional history exists DTap/Tdap Vaccines (3 - Td or Tdap) 11/22/2029 11/23/2019, 06/28/2009 DXA Scan 04/25/2030 04/25/2023, 08/23/2015 Pneumococcal Vaccine: 65+ Years Completed 09/03/2014, 03/31/2012 Zoster Vaccines Completed 11/10/2019, 01/21, 07/19/2009, Additional history exists HPV (Gardasil) Vaccine Aged [...] as of this encounter Visit Diagnoses Diagnosis My[facility] Research Other*[id number] documented in this encounter Advance Directives * [...] Power of Attor gladys? No Care Teams Insulation Worker Apprentice Relationship Specialty Start Date End Date Vargas Barber DO [address] [place] [address] PCP - General Family Medicine 05/13/19 documented as of this encounter
--- OUTSIDE RECORDS SUMMARY | 2024-04-16 03:51 | External Medical Summary ---
Author Name Unknown Address Unknown Organization K01:LABORATORY [facility] [place] - [address] [facility]. [place] [address] Laboratory Report Ordering Provider Test Date Status BISHOP RITTER 01/27/2024 08:30:45 Final Observation Date Value Abnormality Reference (Units ) Status SYNC LEUKOCYTES IN BLOOD BY AUTOMATED COUNT 01/27/2024 08:30:45 7.03 4.00-10.80 (K/uL) Final Segs 01/27/2024 08:30:45 62.0 40.0-75.0 (%) Final Lymphs % 01/27/2024 08:30:45 24.8 18.0-42.0 (%) Final Monos 01/27/2024 08:30:45 8.4 1.0-11.0 (%) Final Eosinophils 01/27/2024 08:30:45 3.7 0.0-6.0 (%) Final Basos 01/27/2024 08:30:45 1.0 0.0-2.0 (%) Final Immature Granulocyte, Percent 01/27/2024 08:30:45 0.1 0.0-2.0 (%) Final Absolute Segs 01/27/2024 08:30:45 4.36 1.80-7.70 (K/uL) Final Lymphs, absolute 01/27/2024 08:30:45 1.74 1.00-4.80 (K/ul) Final Monos, Abs 01/27/2024 08:30:45 0.59 0.00-1.10 (K/uL) Final Eos, Abs 01/27/2024 08:30:45 0.26 0.00-0.70 (K/uL) Final Basos, Abs 01/27/2024 08:30:45 0.07 0.00-0.20 (K/uL) Final Immature Granulocytes, Number 01/27/2024 08:30:45 0.01 0.00-0.20 (K/uL) Final Performing Location LABORATORY [facility] [place] - [address] [facility] [address]
--- OUTSIDE RECORDS SUMMARY | 2024-04-16 03:51 | External Medical Summary | Summary of Care ---
Author Name Unknown Organization [facility] Address [address] [facility] [place] [address] Phone [phone] Care Team Providers Care Game Design Instructor Name Role Phone Riya Barber DO Primary Care Provider Reason for Visit * Reason Comments eRx-Medication Refill Encounter Details Date Type Department Care Team (Late st Contact Info) Description 10/20/2023 Refill Family Practice [facility] [address] [place] [address] Riya Barber DO [address] [place] [address] Allergies No known active allergiesdocumented as of this encounter (statuses as of 10/21/2023) Medications Medication Sig Dispensed Refills Start Date End Date Status Aspirin 81 MG Tablet Take 1 Tablet by mouth in the morning. Active albuterol (VENTOLIN HFA) 108 (90 BASE) MCG/ACT inhaler 2p 4 times a day as needed or prior to exercise 1 Inhaler 1 08/15/2017 Active betamethasone valerate (VALISONE) 0.1 % cream Apply topically to affected area. 07/08/2019 Active Multiple Vitamins-Mineral s (CENTRUM SILVER 50+WOMEN) TABS Take 1 Tab by mouth daily. Active metroNIDAZOLE 0.75 % External Cream (Metrocream) Apply topically to affected area daily. Active Raloxifene HCl 60 MG Oral Tablet (Evista) TAKE 1 TABLET BY MOUTH EVERY DAY 90 Tablet 3 04/29/2023 Active NIFEdipine ER Osmotic Release 30 MG Oral Tablet Extended Release 24 Hour (Procardia XL)Indications:H TN, goal below 140/90,Hypertens laura kidney disease with stage 3a chronic kidney disease (HCC) TAKE 1 TABLET BY MOUTH EVERY DAY ON EMPTY STOMACH 90 Tablet 1 07/25/2023 Active Atenolol 100 MG Oral Tablet (Tenormin)Indica tions:HTN, goal below 140/90,Hypertens laura kidney disease with stage 3a chronic kidney disease (HCC) TAKE 1 TABLET BY MOUTH EVERY DAY IN THE MORNING 90 Tablet 1 07/25/2023 Active Valsartan-hydroC HLOROthiazide 160-12.5 MG Oral Tablet (Diovan Hct)Indications: HTN, goal below 140/90,Hypertens laura kidney disease with stage 3a chronic kidney disease (HCC) TAKE 1 TABLET BY MOUTH EVERY DAY IN THE MORNING 90 Tablet 1 09/07/2023 Active Rosuvastatin Calcium 40 MG Oral Tablet (Crestor)Indicat ions:Dyslipidemi a, goal LDL below 130 TAKE 1 TABLET BY MOUTH EVERY DAY 90 Tablet 1 09/10/2023 Active Famotidine 20 MG Oral Tablet (Pepcid) TAKE 1 TABLET BY MOUTH EVERYDAY AT BEDTIME 90 Tablet 1 10/01/2023 Active Escitalopram Oxalate 10 MG Oral Tablet (Lexapro) TAKE 1 TABLET BY MOUTH EVERY DAY IN THE MORNING 90 Tablet 1 10/21/2023 Active Escitalopram Oxalate 10 MG Oral Tablet (Lexapro) TAKE 1 TABLET BY MOUTH EVERY DAY IN THE MORNING 90 Tablet 1 04/29/2023 10/21/2023 Discontinued documented as of this encounter (statuses as of 10/21/2023) Active Problems Problem Noted Date Diagnosed Date Prediabetes 06/27/2020 Overview: Per Prediabetes protocol HTN, goal below 130/80 11/10/2019 Nausea vomiting and diarrhea 07/09/2019 Hypertensive kidney disease with stage 3 chronic kidney disease 08/15/2018 Abnormal electrocardiogram 08/28/2016 Asthma in remission 02/14/2016 Cholelithiasis documented as of this encounter (statuses as of 10/21/2023) Resolved Problems Problem Noted Date Diagnosed Date [...] as of this encounter (statuses as of 10/21/2023) Immunizations Name Administration Dates Next Due COVID-19 mRNA, LNP-s, No Pre serve, 2-Dose Series (Moderna) 06/08/2020,05/11/2020 Pneumococcal Conjugate Vacc, 13 Valent (Prevnar) 09/03/2014 Pneumococcal Polysaccharide PPV23 (Pneumovax) Seasonal Influenza, PF, 6 M & above, IM , (FluLaval or Fluzone) 02/14/2018,02/14/2017 Seasonal Influenza, Quadrivalent Hd (Fluzone Hd) 12/28/2021,02/16/2021 Seasonal Influenza, Quadrivalent, No Preserve, I M 02/14/2016,02/01/2015 Seasonal Influenza, Trivalent, Adjuvanted, 65+ y rs 02/17/2019 TDAP (age 10 and older)(Boostrix) 11/23/2019 [...] No 07/09/2019 documented as of this encounter Miscellaneous Notes * Telephone Encounter - Stephen Acosta [facility] - 10/21/2023 1:28 PM EDT Signed Prescriptions: Disp Refills Escitalopram Oxalate 10 MG Oral Tablet (Le*90 Tab*1 Sig: TAKE 1 TABLET BY MOUTH EVERY DAY IN THE MORNINGAuthorizing Provider: RIYA BARBEROrderfarooq User: STEPHEN ACOSTA documented in this encounter Plan of Treatment Upcoming Encounters Date Type Department Care Team (Late st Contact Info) Description 02/13/2024 5:40 PM EDT Office Visit Family Practice [facility] [address] [place] [address] Riya Barber, [address] [place] [address] Scheduled Procedures Name Priority Associated Diagnoses Date/Ti me COLONOSCOPY FLEXIBLE PROXIMAL DIAGNOSTIC Recall Colon cancer screening Health Maintenance Due Date Last Done Comments CKD PHOS USE SMARTSET 73875 02/14/2022 10/09/2020, 07/09/2019, 02/17/2019, Additional history exists GFR 12/16/2022 06/18/2022, 11/21, 02/14/2021, Additional history exists COVID-19 Vaccine ( season) 2022 06/08/2020, 05/11/2020 Depression Screening 12/28/2022 12/28/2021 Albumin/Creatinine Ratio 06/18/2023 023, 12/13/2021, 02/14/2021, Additional history exists CKD HGB USE SMARTSET 08847 06/18/202306/18, 06/18/2022, 12/13/2021, Additional history exists HbA1c 06/18/2023 06/18/2022, 11/21, 02/14/2021, Additional history exists Influenza Vaccine (FLU shot) (Season Ended) 2023 12/28/2021, 02/16/2021, 02/03/2020, Additional history exists DTaP,Tdap,and Td Vaccines (3 - Td or Tdap) 11/22/2029 11/23/2019, 06/28/2009 DXA Scan 04/25/2030 04/25/2023, 08/23/2015 Pneumococcal Vaccine: 65+ Years Completed 09/03/2014, 03/31/2012 Zoster Vaccines Completed 11/10/2019, 01/21, 07/19/2009, Additional history exists GARDASIL-HPV IMMUNIZATION SERIES Aged Out No longer eligible based on patient's age to complete this topic Hepatitis B Aged Out No longer eligi ble based on patient's age to complete this [...] Power of Attor gladys? No Care Teams Game Design Instructor Relationship Specialty Start Date End Date Riya Barber DO [address] [place] [address] PCP - General Family Medicine 05/13/19 documented as of this encounter
--- OUTSIDE RECORDS SUMMARY | 2024-04-16 03:51 | External Medical Summary | Summary of Care ---
Author Name Unknown Organization [facility] Address [address] [facility] [place] [address] Phone [phone] Care Team Providers Care Frozen Meat Cutter Name Role Phone Riya Barber DO Primary Care Provider Reason for Visit * Reason Comments eRx-Medication Refill Encounter Details Date Type Department Care Team (Late st Contact Info) Description 01/19/2024 Refill Family Practice [facility] [address] [place] [address] Riya Barber DO [address] [place] [address] HTN, goal below 140/90; Hypertensive kidney disease with stage 3a chronic kidney disease (HCC) Allergies No known active allergiesdocumented as of this encounter (statuses as of 01/22/2024) Medications Medication Sig Dispensed Refills Start Date [...] EVERY DAY 90 Tablet 3 04/29/2023 Active Valsartan-hydroC HLOROthiazide 160-12.5 MG Oral Tablet [...] 01/22/2024 Active Atenolol 100 MG Oral Tablet (Tenormin)Indica tions:HTN, goal below 140/90,Hypertens laura kidney disease with stage 3a chronic kidney disease (HCC) TAKE 1 TABLET BY MOUTH EVERY DAY IN THE MORNING 90 Tablet 1 01/22/2024 Active NIFEdipine ER Osmotic Release 30 MG Oral Tablet Extended Release 24 Hour (Procardia XL)Indications:H TN, goal below 140/90,Hypertens laura kidney disease with stage 3a chronic kidney disease (HCC) TAKE 1 TABLET BY MOUTH EVERY DAY ON EMPTY STOMACH 90 Tablet 1 07/25/2023 01/22/2024 Discontinued Atenolol 100 MG Oral Tablet (Tenormin)Indica tions:HTN, goal below 140/90,Hypertens laura kidney disease with stage 3a chronic kidney disease (HCC) TAKE 1 TABLET BY MOUTH EVERY DAY IN THE MORNING 90 Tablet 1 07/25/2023 01/22/2024 Discontinued documented as of this encounter (statuses as of 01/22/2024) Active Problems Problem Noted Date Diagnosed Date Prediabetes 06/27/2020 Overview: Per Prediabetes protocol HTN, goal below 130/80 11/10/2019 Nausea vomiting and diarrhea 07/09/2019 Hypertensive kidney disease with stage 3 chronic kidney disease 08/15/2018 Abnormal electrocardiogram 08/28/2016 Asthma in remission 02/14/2016 Cholelithiasis documented as of this encounter (statuses as of 01/22/2024) Resolved Problems Problem Noted Date Diagnosed Date [...] as of this encounter (statuses as of 01/22/2024) Immunizations Name Administration Dates Next Due COVID-19 [...] encounter Miscellaneous Notes * Telephone Encounter - Riya Barber DO - 01/22/2024 8:20 AM EDT Signed Prescriptions: Disp Refills NIFEdipine ER Osmotic Release 30 MG Oral T*90 Tab*1 Sig: TAKE 1 TABLET BY MOUTH EVERY DAY ON EMPTY STOMACH Authorizing Provider: RIYA BARBER Atenolol 100 MG Oral Tablet (Tenormin) 90 Tab*1 Sig: TAKE 1 TABLET BY MOUTH EVERY DAY IN THE MORNING Authorizing Provider: RIYA BARBER * Telephone Encounter - Radha Scott, sustainable communities designer - 01/21/2024 4:55 PM EDT Pending Prescriptions: Disp Refills NIFEdipine ER Osmotic Release 30 MG Oral T*90 Tab*1 Sig: TAKE 1 TABLET BY MOUTH EVERY DAY ON EMPTY STOMACH Atenolol 100 MG Oral Tablet [Pharmacy Med *90 Tab*1 Sig: TAKE 1 TABLET BY MOUTH EVERY DAY IN THE MORNING * Telephone Encounter - Radha Scott sustainable communities designer - 01/21/2024 4:54 PM EDT Received message from [facility] regarding patient needing labs. Call Placed, Left message on voicemail advising of required labs Thank you for your assistance Radha Scott Custom Applicator II [facility] 01/21/2024,4:54 PM * Telephone Encounter - Kelsie Morales [facility] - 01/21/2024 7:06 AM EDTPending Prescriptions: Disp Refills NIFEdipine ER Osmotic Release 30 MG Oral T*90 Tab*1 Sig: TAKE 1 TABLET BY MOUTH EVERY DAY ON EMPTY STOMACH Atenolol 100 MG Oral Tablet [Pharmacy Med *90 Tab*1 Sig: TAKE 1 TABLET BY MOUTH EVERY DAY IN THE MORNING * Telephone Encounter - Kelsie Morales [facility] - 01/21/2024 7:05 AM EDT Unable to authorize medication refills for pended medication(s) at this time. Per refill protocol patient should have CMP on file within past year. Reviewed AMP report, Care Gaps/Health Maintenance, medications list, and for any routine labs typically ordered for this patient. Lab orders placed. Please contact patient to advise of labs ordered for blood draw AND URINE specimen (patient will have to be able to void to provide sample). Recommend patient to fast if able for labs. Patient may still have water and regular medications. Advise to obtain labs before her scheduled office visit 02/13/2024. After contacting patient, please forward request to Riya Barber DO. Thanks, Kelsie Salmon, PharmD Clinical Pharmacist [facility] [phone] 01/21/2024 7:05 AM documented in this encounter Plan of Treatment Upcoming Encounters Date Type Department Care Team (Late st Contact Info) Description 02/13/2024 5:40 PM EDT Office Visit [facility] [address] [place] [address] Riya Barber DO [address] [place] [address] Scheduled Procedures Name Priority Associated Diagnoses Date/Ti me COLONOSCOPY FLEXIBLE PROXIMAL DIAGNOSTIC Recall Colon cancer screening Health Maintenance Due Date Last Done Comments Adult Wellness Visit 12/02/2011 CKD PHOS USE SMARTSET 91372 02/14/202201/21, 07/09/2019, 02/17/2019, Additional history exists GFR 12/16/2022 06/18/2022, 11/21, 02/14/2021, Additional history exists Depression Screening 12/28/2022 12/28/2021 Albumin/Creatinine Ratio 06/18/2023 023, 12/13/2021, 02/14/2021, Additional history exists CKD HGB USE SMARTSET 99712 06/18/202306/18, 06/18/2022, 12/13/2021, Additional history exists HbA1c 06/18/2023 06/18/2022, 11/21, 02/14/2021, Additional history exists COVID-19 Vaccine ( - 2023- season) 2023 06/08/2020, 05/11/2020 Influenza Vaccine (FLU [...] Power of Attor gladys? No Care Teams Frozen Meat Cutter Relationship Specialty Start Date End Date Riya Barber DO [address] [place] [address] PCP - General Family Medicine 05/13/19 documented as of this encounter
[2024-04-16] MEDS ORDERED: ACETAMINOPHEN 325 MG TAB PO PRN (04:00)
[2024-04-16] MEDS ORDERED: NITROGLYCERIN SL 0.4 MG/TAB TAB SL PRN (04:00)
[2024-04-16] MEDS ORDERED: PHARMACIST DISCHARGE MED REC CONSULT PRN (04:00)
[2024-04-16] MEDS ORDERED: ONDANSETRON INJ 2 MG/ML 2 ML VIAL IV PRN (04:00)
[2024-04-16] MEDS: POTASSIUM CHLORIDE / WTR 10 MEQ/100 ML PLCT IV SCH (04:10)
[2024-04-16] MEDS: SODIUM CHLORIDE 0.9% 1,000 ML IV SCH (04:10)
[2024-04-16 07:31] VITALS: O2SAT 96
[2024-04-16 08:14] LABS: Basophils # (auto) 0.06 K/uL (0.00-0.20); Basophils % (auto) 0.6 %; Eosinophils # (auto) 0.02 K/uL (0.00-0.50); Eosinophils % (auto) 0.2 %; Hemoglobin 15.1 g/dl (12.0-16.0); Immature Granulocytes # (auto) 0.04 K/uL (0.01-0.20); Immature Granulocytes % (auto) 0.4 %; Lymphocytes # (auto) 1.43 K/uL (1.20-3.40); Lymphocytes % (auto) 13.2 %; Mean Corpuscular Hemoglobin 31.9 pg (25.0-34.0); Mean Corpuscular Hgb Conc 34.3 g/dL (32.0-36.0); Mean Platelet Volume 11.2 fL (9.4-12.4); Monocytes # (auto) 0.58 K/uL (0.11-0.59); Monocytes % (auto) 5.4 %; Neutrophils # (auto) 8.67 K/uL (1.40-6.50); Neutrophils % (auto) 80.2 %; Platelet Count 195 K/uL (130-400); RDW Coefficient of Variation 12.1 % (11.5-14.5); RDW Standard Deviation 41.6 fL (36.4-46.3); Red Blood Count 4.73 M/uL (4.20-5.40)
[2024-04-16 08:29] LABS: BUN Creatinine Ratio 14.3 (10-20); Calcium 9.4 mg/dl (8.6-10.3); Chol HDL Ratio 1.9 (0-5); Creatinine Clr Calc Pharmacy 54.4 ml/min; Magnesium 1.7 mg/dl (1.7-2.4); Potassium 3.8 mmol/L (3.5-5.1)
[2024-04-16 08:52] LABS: Estimated Average Glucose 114 mg/dl; Hemoglobin A1C 5.6 % (4.5-5.6)
[2024-04-16] MEDS ORDERED: VALSARTAN/HCTZ 160/12.5MG TAB PO SCH (09:00)
[2024-04-16] MEDS: RALOXIFENE HCL 60 MG TAB PO SCH (09:34)
[2024-04-16] MEDS: VALSARTAN 80 MG TAB PO SCH (09:35)
[2024-04-16] MEDS: hydroCHLOROthiazide 25 MG TAB PO SCH (09:35)
[2024-04-16] MEDS: ROSUVASTATIN CALCIUM 20 MG TAB PO SCH (09:36)
[2024-04-16] MEDS: ESCITALOPRAM OXALATE 10 MG TAB PO SCH (09:36)
[2024-04-16] MEDS: ATENOLOL 50 MG TABLET PO SCH (09:36)
[2024-04-16] MEDS: NIFEdipine EXTENDED REL 30 MG TABCR PO SCH (09:37)
[2024-04-16] MEDS: ASPIRIN 81 MG ECTAB PO SCH (09:38)
[2024-04-16] MEDS: BETAMETHASONE VAL 0.1% CR 15 GM TOP SCH (09:39)
--- NOTE | 2024-04-16 09:42 | Ultrasound Report ---
ULTRASOUND SOFT TISSUE HEAD AND NECK. CLINICAL HISTORY: Thyroid Nodule TECHNIQUE: Multiple real time sonographic images of the thyroid were obtained. Comparison: Comparison is made to CTA chest 04/15/2024 FINDINGS: The right thyroid lobe measures 4.5 x 1.8 x 1.7 cm. The left thyroid lobe measures approxim ately 4.8 x 1.9 x 1.4 cm. The isthmus measures 0.2 cm. #Nodule 1. LOCATION: Right thyroid inferior pole. Measurement: 1.1 x 1.2 cm. Evaluation is limited d ue to prominent rim calcification. COMPOSITION: 2 points: Solid or almost completely solid. ECHOGENICITY: 1 point: Hyperechoic or isoechoic. SHAPE: 0 point: [id number]. MARGIN: 0 points: Smooth or Ill-defined. ECHOGENIC FOCI: 2 points: Peripheral (rim) calcifications. Overall TI-RADS Score: 5, corresponding to TI-RADS category of 4/5. IMPRESSION: Partially evaluated rim calcified lesion in the right thyroid. Follow-up in one year is recommended. 0 points = TR 1, benign 2 points= TR 2, not suspicious 3 points= TR 3, mildly suspicious. > 1.5 cm- follow year 1, 3, 5 years. > 2.5 cm- FNA 4-6 points= TR 4, moderately suspicious. > 1 cm- follow year 1, 2, 3, 5 years. >1.5 cm- FNA 7 or more points= TR 5, highly suspicious. > 0.5 cm- follow yearly x 5 years. > 1 cm- FNA ACT 112: Negative or not required by law. Electronically signed by: Samm Shabazz M.D. 04/16/2024 9:40 AM
--- NOTE | 2024-04-16 10:31 | Neurology Consultation ---
Date of Consultation April 16, 2024 Assessment & Plan (1) Stroke-like symptom: severe nausea and generalized weakness in a 78F with a PMH of HTN. Her exam is currently normal. 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 MRI showed no stroke. I suspect that the vascular changes are chronic and that her symptoms last night were secondary to the nausea. Plan -- no further inpatient neurologic work up -- continue ASA -- SBP < 130 goal -- ok to d/c from my perspective Telehealth Consultation Telehealth Information Telehealth Information: I performed this visit using a real-time telehealth connection between my location and the patients location ([facility]). After connecting through interactive tele-video, patient was identified by name and date of and/or wristband check.Patient (or authorized healthcare route service representative) was informed that this was a telemedicine visit and it was being conducted confidentially over secure lines. My office door was closed and no one else was present in the room with me.Patient (or authorized healthcare route service representative) provided consent to proceed with the visit, expressed an understanding of privacy and security of the telemedicine visit, and gave permission to have a hospital route service representative in the room in order to assist with the visit and to conduct portions of the visit, as needed. I informed the patient (or authorized healthcare route service representative) that I reviewed their record and presented the opportunity for them to ask any questions regarding the visit today. The patient agreed to participate. History of Present Illness Reason for Consultation: Stroke like symptoms Attending Physician: Arun Wood MD History of Present Illness Sapphire Hathaway is a 78F with a PMH of HTN, and HLD who presented with nausea. She reports that she was just leaving a [employer] party when she suddenly felt very nauseous. She sat down and tried to vomiting but was unable to. During this time she denies any inability to move her body but was just so uncomfortable that she didn't want to move. Eventually she walked to the car and was taken to the ED. 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 She does report that in the past she had an episode of vertigo and was admitted to [facility] for a brief time. Currently she feels at her baseline. She was ambulating with PT this morning and denies any symptoms with that. She denies headache, fevers, chills, chest pain and SOB. Allergies Allergy/AdvReac Type Severity Reaction Status Date / Time No Known Allergies Allergy Unverified 04/16/24 00:25 Home Medications Medication Instructions Recorded Confirmed Type atenolol 100 mg tablet 100 mg PO QAM 04/16/24 04/16/24 History betamethasone valerate 0.1 % 1 applic topical BID 04/16/24 04/16/24 History topical cream escitalopram oxalate 10 mg tablet 10 mg PO DAILY 04/16/24 04/16/24 History nifedipine 30 mg tablet,extended 30 mg PO DAILY 04/16/24 04/16/24 History release 24 hr raloxifene 60 mg tablet 60 mg PO DAILY 04/16/24 04/16/24 History rosuvastatin 40 mg tablet 40 mg PO DAILY 04/16/24 04/16/24 History valsartan 160 1 tab PO QAM 04/16/24 04/16/24 History mg-hydrochlorothiazide 12.5 mg tablet Patient History Social History Smoking Status: Former smoker Tobacco Type: Cigarettes Smoking End Date: 1982; Second Hand Exposure: No; Do You Dip or Chew Tobacco: No; Tobacco Cessation Education Requested by Patient: No Hx Alcohol Use: No Hx Substance Use: No Preferred Language: Ukrainian Communication Ability: Effective Sonar Technician Required: No Beliefs That Will Affect Care: None Current Living Situation: Alone Other Information That Helps Us Care for You: No Feels Safe at Home: Yes Safety Concerns: Feels Safe At This Time Assistive Devices: Glasses Review of Systems See HPI Physical Exam NEUROLOGIC EXAMINATION: Mental Status:alert, oriented to time, place, person, normal recent memory, normal remote memory, normal attention span, normal concentration, normal language, and normal fund of knowledge Cranial Nerves: CN 2 - no visual defect on confrontation and pupils round, equal, reactive to light CN 3, 4, 6 - extra-ocular movements intact and no nystagmus CN 5 - facial sensation intact CN 7 - no facial asymmetry CN 8 - intact hearing CN 9, 10 - palate symmetric, normal gag CN 11 - good shoulder shrug CN 12 - tongue midline MOTOR: Strength was at least antigravity throughout, Pronator drift was absent, and There were no abnormal movements SENSATION: intact GAIT: deferred COORDINATION: no ataxia with finger to nose testing and heel to thurman testing REFLEXES: cannot assess over telemedicine Results & Data Vital Signs (Past 12 Hours) Vital Signs Temp Pulse Pulse Resp BP BP Pulse Ox 04/16/24 07:00 36.6 C 102 H 20 153/88 H 96 04/16/24 04:15 36.6 C 101 H 18 144/78 H 95 04/16/24 03:02 36.5 C 04/16/24 02:32 105 H 04/16/24 02:30 106 H 23 120/82 96 04/16/24 02:05 100 04/16/24 02:00 120 H 22 129/83 100 04/16/24 01:34 100 H 20 100 04/16/24 01:33 126 H 18 115/83 87 L 04/16/24 01:12 110 H 20 137/83 95 04/16/24 01:07 100 H 20 137/83 96 04/16/24 00:03 108 H 19 152/86 H 100 04/15/24 23:00 98 H 20 163/87 H 96 04/15/24 22:48 100 H 22 95 04/15/24 22:36 97 H 04/15/24 22:30 57 L O2 Del Method O2 Flow Rate 04/16/24 07:00 Room Air 04/16/24 04:15 Room Air 04/16/24 03:02 04/16/24 02:32 04/16/24 02:30 Nasal Cannula 1 04/16/24 02:05 Nasal Cannula 2 04/16/24 02:00 Nasal Cannula 2 04/16/24 01:34 Nasal Cannula 1 04/16/24 01:33 Room Air 04/16/24 01:12 Room Air 04/16/24 01:07 Room Air 04/16/24 00:03 Room Air 04/15/24 23:00 Room Air 04/15/24 22:48 Room Air 04/15/24 22:36 04/15/24 22:30 Laboratory Results Abnormal Lab Results 04/15/24 04/15/24 04/15/24 21:54 22:10 22:13 WBC 9.58 RBC 4.53 Hgb 14.3 Hct 41.3 MCV 91.2 MCH 31.6 MCHC 34.6 RDW Std Deviation 40.3 RDW Coeff of Siva 12.1 Plt Count 199 MPV 11.2 Immature Gran % (Auto) 0.3 Neut % (Auto) 59.0 Lymph % (Auto) 27.8 Juncos % (Auto) 9.3 Eos % (Auto) 2.8 Baso % (Auto) 0.8 Neut # (Auto) 5.65 Lymph # (Auto) 2.66 Jun[place] # (Auto) 0.89 H Eos # (Auto) 0.27 Baso # (Auto) 0.08 Immature Gran # (Auto) 0.03 PT 10.6 INR 1.0 APTT 23 PTT Ratio 0.9 Sodium 135 L Potassium 3.0 L Chloride 95 L Carbon Dioxide 30 Anion Gap 10 BUN 14 Creatinine 0.86 Est Cr Clr Drug Dosing 48.4 eGFR 69.10 BUN/Creatinine Ratio 16.3 Glucose 114 H POC Glucose 108 H Estimat Average Glucose Hemoglobin A1c Calcium 9.8 Magnesium 1.8 Total Bilirubin 0.6 AST 34 ALT 18 Alkaline Phosphatase 61 Troponin I High Sens 4.1 Total Protein 7.3 Albumin 4.6 Globulin 2.7 Albumin/Globulin Ratio 1.7 Triglycerides Cholesterol LDL Cholesterol, Calc VLDL Cholesterol, Calc HDL Cholesterol Cholesterol/HDL Ratio Ethyl Alcohol mg/dL Adenovirus (PCR) Not Detected B. pertussis DNA (PCR) Not Detected B.parapertussis DNA PCR Not Detected C. pneumoniae DNA (PCR) Not Detected Coronavirus OC43 (PCR) Not Detected Coronavirus HKU1 (PCR) Not Detected Coronavirus 229E (PCR) Not Detected SARS-CoV-2 (PCR) Not Detected Coronavirus NL63 (PCR) Not Detected Human Metapneumovir PCR Not Detected Influenza Type A (PCR) Not Detected Influenza Type B (PCR) Not Detected M. pneumoniae (PCR) Not Detected Parainfluenza 1 (PCR) Not Detected Parainfluenza 2 (PCR) Not Detected Parainfluenza 3 (PCR) Not Detected Parainfluenza 4 (PCR) Not Detected RSV (PCR) Not Detected Entero/Rhino (PCR) Not Detected Blood Type Antibody Screen 04/15/24 04/16/24 22:32 07:45 WBC 10.80 RBC 4.73 Hgb 15.1 Hct 44.0 MCV 93.0 MCH 31.9 MCHC 34.3 RDW Std Deviation 41.6 RDW Coeff of Siva 12.1 Plt Count 195 MPV 11.2 Immature Gran % (Auto) 0.4 Neut % (Auto) 80.2 Lymph % (Auto) 13.2 Juncos % (Auto) 5.4 Eos % (Auto) 0.2 Baso % (Auto) 0.6 Neut # (Auto) 8.67 H Lymph # (Auto) 1.43 Juncos # (Auto) 0.58 Eos # (Auto) 0.02 Baso # (Auto) 0.06 Immature Gran # (Auto) 0.04 PT INR APTT PTT Ratio Sodium 137 Potassium 3.8 D Chloride 101 Carbon Dioxide 27 Anion Gap 9 BUN 11 Creatinine 0.77 Est Cr Clr Drug Dosing 54.4 eGFR 78.91 BUN/Creatinine Ratio 14.3 Glucose 98 POC Glucose Estimat Average Glucose 114 Hemoglobin A1c 5.6 Calcium 9.4 Magnesium 1.7 Total Bilirubin AST ALT Alkaline Phosphatase Troponin I High Sens Total Protein Albumin Globulin Albumin/Globulin Ratio Triglycerides 42 Cholesterol 115 LDL Cholesterol, Calc 48 VLDL Cholesterol, Calc 8 HDL Cholesterol 59 Cholesterol/HDL Ratio 1.9 Ethyl Alcohol mg/dL < 10.0 Adenovirus (PCR) B. pertussis DNA (PCR) B.parapertussis DNA PCR C. pneumoniae DNA (PCR) Coronavirus OC43 (PCR) Coronavirus HKU1 (PCR) Coronavirus 229E (PCR) SARS-CoV-2 (PCR) Coronavirus NL63 (PCR) Human Metapneumovir PCR Influenza Type A (PCR) Influenza Type B (PCR) M. pneumoniae (PCR) Parainfluenza 1 (PCR) Parainfluenza 2 (PCR) Parainfluenza 3 (PCR) Parainfluenza 4 (PCR) RSV (PCR) Entero/Rhino (PCR) Blood Type O Positive Antibody Screen NEGATIVE Diagnostic Findings Chest X-Ray 04/15/24 21:55 Exam(s): XR CXR 1 VIEW EXAM: XR Chest, 1 View CLINICAL HISTORY: Reason for exam: neuro deficit, acute stroke suspected. TECHNIQUE: Frontal view of the chest. COMPARISON: No relevant prior studies available. FINDINGS: Lungs: Unremarkable. No consolidation. Pleural space: Unremarkable. No pleural effusion or pneumothorax. Heart: Unremarkable. No cardiomegaly or pulmonary vascular congestion. Bones/joints: No acute fracture. No dislocation. IMPRESSION: No evidence of acute cardiopulmonary disease. Electronically signed by: Cam Dang M.D. 04/16/24 00:[address] 04/15/24 21:55 CR Exam(s): CT HEAD Without Contrast EXAM: CT Head Without Intravenous Contrast CLINICAL HISTORY: Reason for exam: neuro deficit, acute stroke suspected. TECHNIQUE: Axial computed tomography images of the head/brain without intravenous contrast. CTDI is 12.34 mGy and DLP is 481.93 mGy-cm. Automated exposure control was utilized for the study. A dose lowering technique was utilized adhering to the principles of ALARA. COMPARISON: No relevant prior studies available. FINDINGS: Brain: Generalized parenchymal volume loss. Mild-moderate chronic small vessel ischemic change. José-white matter differentiation maintained. No hemorrhage, mass effect, parenchymal edema, or midline shift. Ventricles: Unremarkable. No hydrocephalus. Bones/joints: Unremarkable. No acute fracture. Soft tissues: Unremarkable. Vasculature: Intracranial atherosclerosis. Sinuses: Unremarkable as visualized. Mastoid air cells: Unremarkable as visualized. No mastoid effusion. IMPRESSION: No acute intracranial process. Communications: Call Doctor Stroke Electronically signed by: Cam Dang M.D. 04/15/24 22:26 PM Head CTA 04/15/24 21:55 CR Exam(s): CTA HEAD With Contrast IV Amt: 118 ML OPTIRAY 320 EXAM: CT Angiography Head With Intravenous Contrast CLINICAL HISTORY: Reason for exam: neuro deficit, acute stroke suspected. TECHNIQUE: Axial computed tomographic angiography images of the head with intravenous contrast. CTDI is 38.1 mGy and DLP is 624.41 mGy-cm. Automated exposure control was utilized for the study. A dose lowering technique was utilized adhering to the principles of ALARA. MIP reconstructed images were created and reviewed. CONTRAST: Patient received 118 ML OPTIRAY 320 of IV contrast COMPARISON: CT head 04/15/24 FINDINGS: Right internal carotid artery: No acute findings. Intracranial segment is patent with no significant stenosis. No aneurysm. Right anterior cerebral artery: Unremarkable. No occlusion or significant stenosis. No aneurysm. Right middle cerebral artery: Unremarkable. No occlusion or significant stenosis. No aneurysm. Right posterior cerebral artery: origin of the right MEDICAL SURGERY NURSE. No occlusion or significant stenosis. No aneurysm. Right vertebral artery: Unremarkable as visualized. Left internal carotid artery: No acute findings. Intracranial segment is patent with no significant stenosis. No aneurysm. Left anterior cerebral artery: Unremarkable. No occlusion or significant stenosis. No aneurysm. Left middle cerebral artery: Unremarkable. No occlusion or significant stenosis. No aneurysm. Left posterior cerebral artery: origin of the left MEDICAL SURGERY NURSE. No occlusion or significant stenosis. No aneurysm. Left vertebral artery: Left vertebral artery terminates in PICA, developmental variant. Basilar artery: Hypoplastic basilar artery with segmental occlusion. No aneurysm. IMPRESSION: Hypoplastic basilar artery with segmental occlusion, age-indeterminate. Patient has anterior-dominant circulation with origin of both sample taker operator, which appear patent. Consider MRI brain for further evaluation. Communications: Call Doctor Stroke Electronically signed by: Cam Dang M.D. 04/15/24 22:37 PM Neck CTA 04/15/24 21:55 CR Exam(s): CTA NECK With Contrast IV Amt: 118 ML OPTIRAY 320 EXAM: CT Angiography Neck With Intravenous Contrast CLINICAL HISTORY: Reason for exam: neuro deficit, acute stroke suspected. TECHNIQUE: Routine carotid CT angiography protocol was performed with intravenous contrast. NASCET criteria using the distal ICAs for comparison were used for evaluation of stenoses. CTDI is 12.34 mGy and DLP is 481.93 mGy-cm. Automated exposure control was utilized for the study. A dose lowering technique was utilized adhering to the principles of ALARA. MIP reconstructed images were created and reviewed. CONTRAST: Patient received 118 ML OPTIRAY 320 of IV contrast COMPARISON: None. FINDINGS: VASCULATURE: Right common carotid artery: Unremarkable. No occlusion or significant stenosis. No dissection. Right internal carotid artery: Unremarkable. Extracranial segment is patent with no occlusion or significant stenosis. No dissection. Right external carotid artery: Unremarkable. No occlusion. Right vertebral artery: Unremarkable. No occlusion or significant stenosis. No dissection. Left common carotid artery: Unremarkable. No occlusion or significant stenosis. No dissection. Left internal carotid artery: Unremarkable. Extracranial segment is patent with no occlusion or significant stenosis. No dissection. Left external carotid artery: Unremarkable. No occlusion. Left vertebral artery: Unremarkable. No occlusion or significant stenosis. No dissection. Aorta: Variant aortic arch branch anatomy with direct origin of the left vertebral artery from the arch. NECK: Bones/joints: Degenerative changes of the cervical spine. No acute osseous findings. Soft tissues: Unremarkable. Thyroid: Right thyroid lobe nodule measuring 16 mm. Lung apices: Clear. CAROTID STENOSIS REFERENCE USING NASCET CRITERIA: % ICA stenosis = (1 - narrowest ICA diameter/diameter of distal cervical ICA) x 100. Mild - <50% stenosis. Moderate - 50-69% stenosis. Severe - 70-94% stenosis. Near occlusion - 95-99% stenosis. Occluded - 100% stenosis. IMPRESSION: 1. No dissection, significant stenosis, or occlusion. 2. Right thyroid lobe nodule measuring 16 mm. Consider thyroid ultrasound correlation if not previously performed. Communications: Call Doctor Stroke Electronically signed by: Cam Dang M.D. 04/15/24 22:32 PM Brain MRI 04/15/24 22:45 EXAM: MR brain wo con CLINICAL HISTORY: trouble walking and upset stomach ?stroke TECHNIQUE: Multisequential and multiplanar images of the brain were submitted for review without contrast. COMPARISON: None. FINDINGS: Generalized parenchymal atrophy is appreciated. Scattered foci of increased T2/FLAIR signal abnormality are identified within the bilateral periventricular and subcortical white matter, and are most commonly associated with chronic small vessel ischemic disease. No focal parenchymal lesions are seen. No intracranial hemorrhage, mass effect, midline shift, extra-axial collection, or hydrocephalus is identified. Ventricles, sulci, and basal cisterns are symmetric and normal in size and configuration. Diffusion-weighted sequences show no evidence of acute ischemic infarction. Midline structures including the pituitary gland, corpus callosum, pineal region, and brainstem are unremarkable. The craniovertebral junction is within normal limits. No calvarial abnormalities are identified. The paranasal sinuses and mastoid air cells are clear. Orbital structures are unremarkable. Appropriate flow voids are present in the visualized intracranial vessels. IMPRESSION: 1. No acute ischemia, space occupying mass, or other acute intracranial pathology is demonstrated. 2. Chronic small vessel ischemic disease. 3. Diffuse cerebral atrophy. Electronically signed by Henry Monahan 04-16-2024 03:05 AM Thyroid Ultrasound 04/16/24 08:08 ULTRASOUND SOFT TISSUE HEAD AND NECK. CLINICAL HISTORY: Thyroid Nodule TECHNIQUE: Multiple real time sonographic images of the thyroid were obtained. Comparison: Comparison is made to CTA chest 04/15/2024 FINDINGS: The right thyroid lobe measures 4.5 x 1.8 x 1.7 cm. The left thyroid lobe measures approximately 4.8 x 1.9 x 1.4 cm. The isthmus measures 0.2 cm. #Nodule 1. LOCATION: Right thyroid inferior pole. Measurement: 1.1 x 1.2 cm. Evaluation is limited due to prominent rim calcification. COMPOSITION: 2 points: Solid or almost completely solid. ECHOGENICITY: 1 point: Hyperechoic or isoechoic. SHAPE: 0 point: [id number]. MARGIN: 0 points: Smooth or Ill-defined. ECHOGENIC FOCI: 2 points: Peripheral (rim) calcifications. Overall TI-RADS Score: 5, corresponding to TI-RADS category of 4/5. IMPRESSION: Partially evaluated rim calcified lesion in the right thyroid. Follow-up in one year is recommended. 0 points = TR 1, benign 2 points= TR 2, not suspicious 3 points= TR 3, mildly suspicious. > 1.5 cm- follow year 1, 3, 5 years. > 2.5 cm- FNA 4-6 points= TR 4, moderately suspicious. > 1 cm- follow year 1, 2, 3, 5 years. >1.5 cm- FNA 7 or more points= TR 5, highly suspicious. > 0.5 cm- follow yearly x 5 years. > 1 cm- FNA ACT 112: Negative or not required by law. Electronically signed by: Samm Shabazz M.D. 04/16/2024 9:40 AM
[2024-04-16 11:02] VITALS: BP 153/89; PULSE 90; RESP 18; TEMP 98.1
--- NOTE | 2024-04-16 12:06 | Hospitalist Progress Note ---
Date of Service April 16, 2024 Assessment & Plan (1) Stroke-like symptom: Plan: Patient is a 78-yr female with past medical history significant for prediabetes, asthma in remission, abnormal EKG, hypertension, cholelithiasis, nausea vomiting ,diarrhea, chronic kidney disease stage III presents with strokelike symptoms. Patient was at [facility]. Around 8 PM she suddenly felt nauseous and sick to her stomach she felt like she could not move and she sat down. She was feeling nauseous and tried to vomit but could not vomit. She coughed trying to vomit. The feeling of not able to move lasted for about 45 minutes. Currently in the ER she is able to ambulate okay. After antinausea medications she is feeling better. Denies any headache or dizziness. No blurred visions or double vision. No earache, no runny nose currently. No sore throat. No difficulty swallowing. Denies chest pain. Denies shortness of breath. Feeling sick to her stomach. No diarrhea or constipation. No blood in stools or black stools. Micturating okay. No rash. Hemodynamics are okay.Patient got Ativan for MRI scan after that she was requiring oxygen Strokelike symptoms Likely vasovagal secondary to significant nausea --CT head unremarkable --CTA neck no acute findings. Right thyroid lobe measuring 16 mm --Head CTA:Hypoplastic basilar artery with segmental occlusion, age- indeterminate. Patient has anterior-dominant circulation with origin of both specialties operator, which appear patent. --MRI Brain:No acute ischemia, space occupying mass, or other acute intracranial pathology is demonstrated. Chronic small vessel ischemic disease. Diffuse cerebral atrophy. -- Lipid panel, A1c normal --ECHO: Mild concentric LVH. EF 65 to 70%. No significant valvular disease. Interatrial septum is intact. -- Appreciate neurology input: Given chronic small vessel ischemic disease on MRI, recommends to continue aspirin 81 mg daily --Monitor blood pressure closely and adjust medications as needed --PT OT, speech eval completed Plan to discharge home today Right thyroid lesion Thyroid ultrasound:Partially evaluated rim calcified lesion in the right thyroid. Follow-up in one year is recommended. Advised to follow-up with primary care physician for further evaluation including thyroid function test as outpatient Hypertension Continue valsartan, hydrochlorothiazide, nifedipine and atenolol monitor Hyperlipidemia On statin Prediabetes HbA1c 5.6 CKD stage III Creatinine 0.8 monitor Hypokalemia Replace and monitor DVT Px: SCDs CODE STATUS Full code Disposition Home Admission and Anticipated Discharge Date Admission Date: April 16, 2024 Subjective Patient is seen and examined at bedside Dizziness, nausea resolved Denies any chest pain, dyspnea, abdominal pain, diarrhea, focal weakness or numbness Discussed with neurologist Also discussed with patient's family at bedside Review of Systems Review of Systems: All systems reviewed & are unremarkable except as noted in Subjective Physical Exam Physical Exam: Physical Exam: Vitals signs as noted above General Appearance:Moderately built and nourished, no apparent distress Head: normocephalic, Atraumatic Eyes: normal inspection, EOMI Neck: supple, Trachea midline Respiratory/Chest: Normal breath sounds, CTA, No accessory muscle use Cardiovascular: S1, S2, No murmur Abdomen/GI:Soft, Non tender, Bowel sounds present Extremities/Musculoskeletal:normal inspection, Trace edema Neurologic/Psych:AAOX3, grossly no focal neurological deficits Skin: normal color, warm Results & Data Results & Data Vital Signs (Past 12 Hours) Vital Signs Temp Pulse Pulse Resp BP BP Pulse Ox 04/16/24 11:00 36.7 C 90 18 153/89 H 96 04/16/24 07:30 04/16/24 07:00 36.6 C 102 H 20 153/88 H 96 04/16/24 04:15 36.6 C 101 H 18 144/78 H 95 04/16/24 03:02 36.5 C 04/16/24 02:32 105 H 04/16/24 02:30 106 H 23 120/82 96 04/16/24 02:05 100 04/16/24 02:00 120 H 22 129/83 100 04/16/24 01:34 100 H 20 100 04/16/24 01:33 126 H 18 115/83 87 L 04/16/24 01:12 110 H 20 137/83 95 04/16/24 01:07 100 H 20 137/83 96 O2 Del Method O2 Flow Rate 04/16/24 11:00 Room Air 04/16/24 07:30 Room Air, Nasal Cannula 04/16/24 07:00 Room Air 04/16/24 04:15 Room Air 04/16/24 03:02 04/16/24 02:32 04/16/24 02:30 Nasal Cannula 1 04/16/24 02:05 Nasal Cannula 2 04/16/24 02:00 Nasal Cannula 2 04/16/24 01:34 Nasal Cannula 1 04/16/24 01:33 Room Air 04/16/24 01:12 Room Air 04/16/24 01:07 Room Air Laboratory Results Short CBC 04/15/24 04/16/24 Range/Units 21:54 07:45 WBC 9.58 10.80 (4.8-10.8) K/ul Hgb 14.3 15.1 (12.0-16.0) g/dl Hct 41.3 44.0 (37.0-47.0) % Plt Count 199 195 (130-400) K/uL BMP 04/15/24 04/16/24 21:54 07:45 Sodium 135 L 137 Potassium 3.0 L 3.8 D Chloride 95 L 101 Carbon Dioxide 30 27 BUN 14 11 Creatinine 0.86 0.77 Glucose 114 H 98 Calcium 9.8 9.4 Liver Function 04/15/24 Range/Units 21:54 Total Bilirubin 0.6 (0.2-1.0) mg/dl AST 34 (13-39) U/L ALT 18 (7-52) U/L Alkaline Phosphatase 61 (34-104) U/L Albumin 4.6 (3.4-5.0) gm/dl
[2024-04-16] MEDS ORDERED: STROKE PATIENT DISCHARGE STA (12:30)
--- NOTE | 2024-04-16 12:30 | Communication Note ---
Date of Service: April 16, 2024 By CMS guidelines, a determination that the admission or continued stay is not medically necessary has been made by a member of the Utilization Review c ommittee and a physician for this hospital stay. Therefore, a Code 44 will be completed and the inpatient admission will be changed to outpatient.
--- NOTE | 2024-04-16 12:30 | Communication Note ---
Date of Service: April 16, 2024 By CMS guidelines, a determination that the admission or continued stay is not medically necessary has been made by a member of the UR committee and a ph ysician for this hospital stay, therefore a Code 44 will be completed and the Inpatient admission will be changed to outpatient.
--- NOTE | 2024-04-16 12:32 | Discharge Summary ---
Date of Service April 16, 2024 Admission HPI Per Admitting Provider 78-year-old female with past medical history significant for prediabetes, asthma in remission, abnormal EKG, hypertension, cholelithiasis, nausea vomiting ,diarrhea, chronic kidney disease stage III presents with strokelike symptoms. Patient was at [facility], [place]. Around 8 PM she suddenly felt nauseous and sick to her stomach she felt like she could not move and she sat down. She was feeling nauseous and tried to vomit but could not vomit. She coughed trying to vomit. The feeling of not able to move lasted for about 45 minutes. Currently in the ER she is able to ambulate okay. After antinausea medications she is feeling better. Denies any headache or dizziness. No blurred visions or double vision. No earache, no runny nose currently. No sore throat. No difficulty swallowing. Denies chest pain. Denies shortness of breath. Feeling sick to her stomach. No diarrhea or constipation. No blood in stools or black stools. Micturating okay. No rash. Hemodynamics are okay.Patient got Ativan for MRI scan after that she was requiring oxygen Past medical history. As mentioned above Past surgical history. Colonoscopy. Removal of skin lesions. Tonsillectomy. Social history. Quit smoking 1977. Smoked 0.3 packs a day for 10 years. Alcohol rarely. No drug use. Family history. Mother had stomach cancer. Hypertension. Brother had hypertension. Father had hypertension. Son has hypertension Admission Exam Per Admitting Provider General- Not in distress Head- atraumatic Eyes- PERRL, EOMI. ENT- oropharynx clear Neck- supple, no JVD Lungs- clear to auscultation no wheezing or crackles Heart- regular rate and rhythm; no murmur, no gallop. Abdomen- normal bowel sounds, soft, nontender, no distension. Extremities-trace pretibial edema present, no erythema seen Neuro- alert, oriented PERRL, EOMI; no facial palsy; no dysarthria; motor 5/5 bilaterally; no pronator drift, co-ordination of movements normal, sensations intact, position sense intact Principal Diagnosis Strokelike symptoms: Likely vasovagal secondary to nausea Right thyroid lesion Discharge Data Allergies Allergy/AdvReac Type Severity Reaction Status Date / Time No Known Allergies Allergy Unverified 04/16/24 00:25 Consultations 04/15/24 22:45 ED Decision to Admit Stat 04/16/24 08:00 Consult Neurology Routine Procedures Performed Laboratory Results WBC 10.80 K/ul (4.8-10.8) 04/16/24 07:45 RBC 4.73 M/uL (4.20-5.40) 04/16/24 07:45 Hgb 15.1 g/dl (12.0-16.0) 04/16/24 07:45 Hct 44.0 % (37.0-47.0) 04/16/24 07:45 MCV 93.0 fL (80.0-100.0) 04/16/24 07:45 MCH 31.9 pg (25.0-34.0) 04/16/24 07:45 MCHC 34.3 g/dL (32.0-36.0) 04/16/24 07:45 RDW Std Deviation 41.6 fL (36.4-46.3) 04/16/24 07:45 RDW Coeff of Siva 12.1 % (11.5-14.5) 04/16/24 07:45 Plt Count 195 K/uL (130-400) 04/16/24 07:45 MPV 11.2 fL (9.4-12.4) 04/16/24 07:45 Immature Gran % (Auto) 0.4 % 04/16/24 07:45 Neut % (Auto) 80.2 % 04/16/24 07:45 Lymph % (Auto) 13.2 % 04/16/24 07:45 [place] % (Auto) 5.4 % 04/16/24 07:45 Eos % (Auto) 0.2 % 04/16/24 07:45 Baso % (Auto) 0.6 % 04/16/24 07:45 Neut # (Auto) 8.67 K/uL (1.40-6.50) H 04/16/24 07:45 Lymph # (Auto) 1.43 K/uL (1.20-3.40) 04/16/24 07:45 [place] # (Auto) 0.58 K/uL (0.11-0.59) 04/16/24 07:45 Eos # (Auto) 0.02 K/uL (0.00-0.50) 04/16/24 07:45 Baso # (Auto) 0.06 K/uL (0.00-0.20) 04/16/24 07:45 Immature Gran # (Auto) 0.04 K/uL (0.01-0.20) 04/16/24 07:45 PT 10.6 Seconds (9.0-12.0) 04/15/24 21:54 INR 1.0 (0.9-1.1) 04/15/24 21:54 APTT 23 Seconds (21-31) 04/15/24 21:54 PTT Ratio 0.9 04/15/24 21:54 Sodium 137 mmol/L (136-145) 04/16/24 07:45 Potassium 3.8 mmol/L (3.5-5.1) D 04/16/24 07:45 Chloride 101 mmol/L (98-107) 04/16/24 07:45 Carbon Dioxide 27 mmol/L (21-32) 04/16/24 07:45 Anion Gap 9 (3-11) 04/16/24 07:45 BUN 11 mg/dl (6-23) 04/16/24 07:45 Creatinine 0.77 mg/dl (0.6-1.2) 04/16/24 07:45 Est Cr Clr Drug Dosing 54.4 ml/min 04/16/24 07:45 eGFR 78.91 04/16/24 07:45 BUN/Creatinine Ratio 14.3 (10-20) 04/16/24 07:45 Glucose 98 mg/dl (70-99(Fasting)) 04/16/24 07:45 POC Glucose 108 mg/dl (70-99) H 04/15/24 22:13 Estimat Average Glucose 114 mg/dl 04/16/24 07:45 Hemoglobin A1c 5.6 % (4.5-5.6) 04/16/24 07:45 Calcium 9.4 mg/dl (8.6-10.3) 04/16/24 07:45 Magnesium 1.7 mg/dl (1.7-2.4) 04/16/24 07:45 Total Bilirubin 0.6 mg/dl (0.2-1.0) 04/15/24 21:54 AST 34 U/L (13-39) 04/15/24 21:54 ALT 18 U/L (7-52) 04/15/24 21:54 Alkaline Phosphatase 61 U/L (34-104) 04/15/24 21:54 Troponin I High Sens 4.1 pg/ml (0-14) 04/15/24 21:54 Total Protein 7.3 gm/dl (6.0-8.3) 04/15/24 21:54 Albumin 4.6 gm/dl (3.4-5.0) 04/15/24 21:54 Globulin 2.7 gm/dl (2.5-4.0) 04/15/24 21:54 Albumin/Globulin Ratio 1.7 (0.9-2) 04/15/24 21:54 Triglycerides 42 mg/dl (0-150) 04/16/24 07:45 Cholesterol 115 mg/dl (0-200) 04/16/24 07:45 LDL Cholesterol, Calc 48 mg/dl 04/16/24 07:45 VLDL Cholesterol, Calc 8 mg/dl (0-30) 04/16/24 07:45 HDL Cholesterol 59 mg/dl 04/16/24 07:45 Cholesterol/HDL Ratio 1.9 (0-5) 04/16/24 07:45 Ethyl Alcohol mg/dL < 10.0 mg/dl (<10.0) 04/15/24 22:32 Adenovirus (PCR) Not Detected (NotDetected) 04/15/24 22:10 B. pertussis DNA (PCR) Not Detected (NotDetected) 04/15/24 22:10 B.parapertussis DNA PCR Not Detected (NotDetected) 04/15/24 22:10 C. pneumoniae DNA (PCR) Not Detected (NotDetected) 04/15/24 22:10 Coronavirus OC43 (PCR) Not Detected (NotDetected) 04/15/24 22:10 Coronavirus HKU1 (PCR) Not Detected (NotDetected) 04/15/24 22:10 Coronavirus 229E (PCR) Not Detected (NotDetected) 04/15/24 22:10 SARS-CoV-2 (PCR) Not Detected (NotDetected) 04/15/24 22:10 Coronavirus NL63 (PCR) Not Detected (NotDetected) 04/15/24 22:10 Human Metapneumovir PCR Not Detected (NotDetected) 04/15/24 22:10 Influenza Type A (PCR) Not Detected (NotDetected) 04/15/24 22:10 Influenza Type B (PCR) Not Detected (NotDetected) 04/15/24 22:10 M. pneumoniae (PCR) Not Detected (NotDetected) 04/15/24 22:10 Parainfluenza 1 (PCR) Not Detected (NotDetected) 04/15/24 22:10 Parainfluenza 2 (PCR) Not Detected (NotDetected) 04/15/24 22:10 Parainfluenza 3 (PCR) Not Detected (NotDetected) 04/15/24 22:10 Parainfluenza 4 (PCR) Not Detected (NotDetected) 04/15/24 22:10 RSV (PCR) Not Detected (NotDetected) 04/15/24 22:10 Entero/Rhino (PCR) Not Detected (NotDetected) 04/15/24 22:10 Blood Type O Positive 04/15/24 22:32 Antibody Screen NEGATIVE 04/15/24 22:32 Impressions Chest X-Ray 04/15/24 21:55 Exam(s): XR CXR 1 VIEW EXAM: XR Chest, 1 View CLINICAL HISTORY: Reason for exam: neuro deficit, acute stroke suspected. TECHNIQUE: Frontal view of the chest. COMPARISON: No relevant prior studies available. FINDINGS: Lungs: Unremarkable. No consolidation. Pleural space: Unremarkable. No pleural effusion or pneumothorax. Heart: Unremarkable. No cardiomegaly or pulmonary vascular congestion. Bones/joints: No acute fracture. No dislocation. IMPRESSION: No evidence of acute cardiopulmonary disease. Electronically signed by: Cam Dang M.D. 04/16/24 00:[address] 04/15/24 21:55 CR Exam(s): CT HEAD Without Contrast EXAM: CT Head Without Intravenous Contrast CLINICAL HISTORY: Reason for exam: neuro deficit, acute stroke suspected. TECHNIQUE: Axial computed tomography images of the head/brain without intravenous contrast. CTDI is 12.34 mGy and DLP is 481.93 mGy-cm. Automated exposure control was utilized for the study. A dose lowering technique was utilized adhering to the principles of ALARA. COMPARISON: No relevant prior studies available. FINDINGS: Brain: Generalized parenchymal volume loss. Mild-moderate chronic small vessel ischemic change. José-white matter differentiation maintained. No hemorrhage, mass effect, parenchymal edema, or midline shift. Ventricles: Unremarkable. No hydrocephalus. Bones/joints: Unremarkable. No acute fracture. Soft tissues: Unremarkable. Vasculature: Intracranial atherosclerosis. Sinuses: Unremarkable as visualized. Mastoid air cells: Unremarkable as visualized. No mastoid effusion. IMPRESSION: No acute intracranial process. Communications: Call Doctor Stroke Electronically signed by: Cam Dang M.D. 04/15/24 22:26 PM Head CTA 04/15/24 21:55 CR Exam(s): CTA HEAD With Contrast IV Amt: 118 ML OPTIRAY 320 EXAM: CT Angiography Head With Intravenous Contrast CLINICAL HISTORY: Reason for exam: neuro deficit, acute stroke suspected. TECHNIQUE: Axial computed tomographic angiography images of the head with intravenous contrast. CTDI is 38.1 mGy and DLP is 624.41 mGy-cm. Automated exposure control was utilized for the study. A dose lowering technique was utilized adhering to the principles of ALARA. MIP reconstructed images were created and reviewed. CONTRAST: Patient received 118 ML OPTIRAY 320 of IV contrast COMPARISON: CT head 04/15/24 FINDINGS: Right internal carotid artery: No acute findings. Intracranial segment is patent with no significant stenosis. No aneurysm. Right anterior cerebral artery: Unremarkable. No occlusion or significant stenosis. No aneurysm. Right middle cerebral artery: Unremarkable. No occlusion or significant stenosis. No aneurysm. Right posterior cerebral artery: origin of the right [employer] HEL[employer]. No occlusion or significant stenosis. No aneurysm. Right vertebral artery: Unremarkable as visualized. Left internal carotid artery: No acute findings. Intracranial segment is patent with no significant stenosis. No aneurysm. Left anterior cerebral artery: Unremarkable. No occlusion or significant stenosis. No aneurysm. Left middle cerebral artery: Unremarkable. No occlusion or significant stenosis. No aneurysm. 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 No occlusion or significant stenosis. No aneurysm. Left vertebral artery: Left vertebral artery terminates in PICA, developmental variant. Basilar artery: Hypoplastic basilar artery with segmental occlusion. No aneurysm. IMPRESSION: Hypoplastic basilar artery with segmental occlusion, age-indeterminate. Patient has anterior-dominant circulation with origin of both fagoter, which appear patent. Consider MRI brain for further evaluation. Communications: Call Doctor Stroke Electronically signed by: Cam Dang M.D. 04/15/24 22:37 PM Neck CTA 04/15/24 21:55 CR Exam(s): CTA NECK With Contrast IV Amt: 118 ML OPTIRAY 320 EXAM: CT Angiography Neck With Intravenous Contrast CLINICAL HISTORY: Reason for exam: neuro deficit, acute stroke suspected. TECHNIQUE: Routine carotid CT angiography protocol was performed with intravenous contrast. NASCET criteria using the distal ICAs for comparison were used for evaluation of stenoses. CTDI is 12.34 mGy and DLP is 481.93 mGy-cm. Automated exposure control was utilized for the study. A dose lowering technique was utilized adhering to the principles of ALARA. MIP reconstructed images were created and reviewed. CONTRAST: Patient received 118 ML OPTIRAY 320 of IV contrast COMPARISON: None. FINDINGS: VASCULATURE: Right common carotid artery: Unremarkable. No occlusion or significant stenosis. No dissection. Right internal carotid artery: Unremarkable. Extracranial segment is patent with no occlusion or significant stenosis. No dissection. Right external carotid artery: Unremarkable. No occlusion. Right vertebral artery: Unremarkable. No occlusion or significant stenosis. No dissection. Left common carotid artery: Unremarkable. No occlusion or significant stenosis. No dissection. Left internal carotid artery: Unremarkable. Extracranial segment is patent with no occlusion or significant stenosis. No dissection. Left external carotid artery: Unremarkable. No occlusion. Left vertebral artery: Unremarkable. No occlusion or significant stenosis. No dissection. Aorta: Variant aortic arch branch anatomy with direct origin of the left vertebral artery from the arch. NECK: Bones/joints: Degenerative changes of the cervical spine. No acute osseous findings. Soft tissues: Unremarkable. Thyroid: Right thyroid lobe nodule measuring 16 mm. Lung apices: Clear. CAROTID STENOSIS REFERENCE USING NASCET CRITERIA: % ICA stenosis = (1 - narrowest ICA diameter/diameter of distal cervical ICA) x 100. Mild - <50% stenosis. Moderate - 50-69% stenosis. Severe - 70-94% stenosis. Near occlusion - 95-99% stenosis. Occluded - 100% stenosis. IMPRESSION: 1. No dissection, significant stenosis, or occlusion. 2. Right thyroid lobe nodule measuring 16 mm. Consider thyroid ultrasound correlation if not previously performed. Communications: Call Doctor Stroke Electronically signed by: Cam Dang M.D. 04/15/24 22:32 PM Brain MRI 04/15/24 22:45 EXAM: MR brain wo con CLINICAL HISTORY: trouble walking and upset stomach ?stroke TECHNIQUE: Multisequential and multiplanar images of the brain were submitted for review without contrast. COMPARISON: None. FINDINGS: Generalized parenchymal atrophy is appreciated. Scattered foci of increased T2/FLAIR signal abnormality are identified within the bilateral periventricular and subcortical white matter, and are most commonly associated with chronic small vessel ischemic disease. No focal parenchymal lesions are seen. No intracranial hemorrhage, mass effect, midline shift, extra-axial collection, or hydrocephalus is identified. Ventricles, sulci, and basal cisterns are symmetric and normal in size and configuration. Diffusion-weighted sequences show no evidence of acute ischemic infarction. Midline structures including the pituitary gland, corpus callosum, pineal region, and brainstem are unremarkable. The craniovertebral junction is within normal limits. No calvarial abnormalities are identified. The paranasal sinuses and mastoid air cells are clear. Orbital structures are unremarkable. Appropriate flow voids are present in the visualized intracranial vessels. IMPRESSION: 1. No acute ischemia, space occupying mass, or other acute intracranial pathology is demonstrated. 2. Chronic small vessel ischemic disease. 3. Diffuse cerebral atrophy. Electronically signed by Henry Monahan 04-16-2024 03:05 AM Thyroid Ultrasound 04/16/24 08:08 ULTRASOUND SOFT TISSUE HEAD AND NECK. CLINICAL HISTORY: Thyroid Nodule TECHNIQUE: Multiple real time sonographic images of the thyroid were obtained. Comparison: Comparison is made to CTA chest 04/15/2024 FINDINGS: The right thyroid lobe measures 4.5 x 1.8 x 1.7 cm. The left thyroid lobe measures approximately 4.8 x 1.9 x 1.4 cm. The isthmus measures 0.2 cm. #Nodule 1. LOCATION: Right thyroid inferior pole. Measurement: 1.1 x 1.2 cm. Evaluation is limited due to prominent rim calcification. COMPOSITION: 2 points: Solid or almost completely solid. ECHOGENICITY: 1 point: Hyperechoic or isoechoic. SHAPE: 0 point: [id number]. MARGIN: 0 points: Smooth or Ill-defined. ECHOGENIC FOCI: 2 points: Peripheral (rim) calcifications. Overall TI-RADS Score: 5, corresponding to TI-RADS category of 4/5. IMPRESSION: Partially evaluated rim calcified lesion in the right thyroid. Follow-up in one year is recommended. 0 points = TR 1, benign 2 points= TR 2, not suspicious 3 points= TR 3, mildly suspicious. > 1.5 cm- follow year 1, 3, 5 years. > 2.5 cm- FNA 4-6 points= TR 4, moderately suspicious. > 1 cm- follow year 1, 2, 3, 5 years. >1.5 cm- FNA 7 or more points= TR 5, highly suspicious. > 0.5 cm- follow yearly x 5 years. > 1 cm- FNA ACT 112: Negative or not required by law. Electronically signed by: Samm Shabazz M.D. 04/16/2024 9:40 AM Ordered Studies 04/15/24 21:55 CT angio head w con Stat CT angio neck with con Stat CT head/brain wo con Stat 04/15/24 22:45 MR brain wo con Stat 04/16/24 08:08 thyroid Routine Hospital Course (1) Stroke-like symptom: Patient is a 78-yr female with past medical history significant for prediabetes, asthma in remission, abnormal EKG, hypertension, cholelithiasis, nausea vomiting ,diarrhea, chronic kidney disease stage III presents with strokelike symptoms. Patient was at [employer]. Around 8 PM she suddenly felt nauseous and sick to her stomach she felt like she could not move and she sat down. She was feeling nauseous and tried to vomit but could not vomit. She coughed trying to vomit. The feeling of not able to move lasted for about 45 minutes. Currently in the ER she is able to ambulate okay. After antinausea medications she is feeling better. Denies any headache or dizziness. No blurred visions or double vision. No earache, no runny nose currently. No sore throat. No difficulty swallowing. Denies chest pain. Denies shortness of breath. Feeling sick to her stomach. No diarrhea or constipation. No blood in stools or black stools. Micturating okay. No rash. Hemodynamics are okay.Patient got Ativan for MRI sc an after that she was requiring oxygen Strokelike symptoms Likely vasovagal secondary to significant nausea --CT head unremarkable --CTA neck no acute findings. Right thyroid lobe measuring 16 mm --Head CTA:Hypoplastic basilar artery with segmental occlusion, age- indeterminate. Patient has anterior-dominant circulation with origin of both fagoter, which appear patent. --MRI Brain:No acute ischemia, space occupying mass, or other acute intracranial pathology is demonstrated. Chronic small vessel ischemic disease. Diffuse cerebral atrophy. -- Lipid panel, A1c normal --ECHO: Mild concentric LVH. EF 65 to 70%. No significant valvular disease. Interatrial septum is intact. -- Appreciate neurology input: Given chronic small vessel ischemic disease on MRI, recommends to continue aspirin 81 mg daily --Monitor blood pressure closely and adjust medications as needed --PT OT, speech eval completed Plan to discharge home today Right thyroid lesion Thyroid ultrasound:Partially evaluated rim calcified lesion in the right thyroid. Follow-up in one year is recommended. Advised to follow-up with primary care physician for further evaluation including thyroid function test as outpatient Hypertension Continue valsartan, hydrochlorothiazide, nifedipine and atenolol monitor Hyperlipidemia On statin Prediabetes HbA1c 5.6 CKD stage III Creatinine 0.8 monitor Hypokalemia Replace and monitor DVT Px: SCDs CODE STATUS Full code Disposition Home Total Time Total Time Spent Total Time Spent (In Minutes): 56 minutes Discharge Plan Discharge Items Patient Disposition: Home - Self-Care Reason For Visit: STROKE LIKE SYMPTOMS Discharge Diagnosis: Strokelike symptoms: Likely vasovagal secondary to nausea Right thyroid lesion Condition on Discharge: Good Activity: Per Instructions section Exercise/Sports: Gradually increase as tolerated Non-emergency contact: Primary Care Provider Call non-emergency contact if: you have any medication questions, your symptoms worsen, your pain is concerning for you and you have a fever Follow-up/Referrals: Vargas Barber DO [Primary Care Provider] - (Date & Time 04/21/2024 11:00 AM Provider: Vargas Barber DO Department: Family Practice [facility] ) Diet: Heart Healthy Addtl Attending Provider Instructions: Follow-up with your primary care physician Dr. Vargas Barber as scheduled -- Discussed with your physician for further management of thyroid lesion which was incidentally noted on your thyroid ultrasound. (You may need thyroid function test, possible FNA C for further evaluation) -- Continue taking aspirin 81 mg daily as recommended by your neurologist --Monitor your blood pressure regularly and discuss with your physician for further adjustment of medications as needed to better control your blood pressure. Seek immediate medical attention if your symptoms reoccur or worsen Please take all medications as instructed on discharge list below. Please call if you have any questions or problems. You can reach a [facility] hospitalist on duty at [facility] 24 hours a day by calling [phone] [facility] Provider Instructions: Risk Factors for Stroke: You can reduce your chances of stroke by working with your medical provider to adopt a healthy lifestyle. Some specific ways to lower your chance of stroke are: * If you are a smoker, now is the time to stop smoking cigarettes * If you are diabetic, improve the control of your blood sugars * Avoid excessive amounts of alcohol * Control high blood pressure * Lose weight if you are overweight * Be sure to lead an active lifestyle * Eat a healthy diet low in salt, cholesterol and fat You should know about other risk factors for stroke that you are unable to control. These include: * Age 55 years or older * Male gender * Certain racial groups: , or / * Family History of Stroke, Mini stroke or Heart Attack * Sickle Cell Disease Follow Up: It is important for you to keep your follow up appointments with your medical provider. Who to Call and When: Medical Emergencies: Call 911 immediately if you experience any of the following warning signs and symptoms of Stroke: * Sudden numbness or weakness of the face, arm or leg, especially on one side of the body * Sudden confusion, trouble speaking or understanding * Sudden trouble seeing in one or both eyes * Sudden trouble walking, dizziness, loss of balance or coordination * Sudden severe headache with no cause Do not delay calling 911 if you experience any warning signs or symptoms of a stroke. Delay in seeking medical attention may affect what treatments can be given to you. . Pending Studies at Discharge: No Stand-Alone Forms: My [facility], Smoking Cessation Medications and DC Order Prescriptions: New aspirin 81 mg Tablet,Delayed Release (Dr/Ec) 81 mg PO QAM Qty: 30 1RF Continued nifedipine 30 mg tablet extended release 24hr 30 mg PO DAILY atenolol 100 mg tablet 100 mg PO QAM valsartan-hydrochlorothiazide 160-12.5 mg tablet 1 tab PO QAM betamethasone valerate 0.1 % cream 1 applic TOPICAL BID raloxifene 60 mg tablet 60 mg PO DAILY escitalopram oxalate 10 mg tablet 10 mg PO DAILY rosuvastatin 40 mg tablet 40 mg PO DAILY Discharge Orders: Discharge Order (Routine); Ordered 04/16/24 Ordered By: Arun Wood Admission Data Admit Date/Time: 04/16/24 02:24 Attending Provider: Arun Wood Admit Provider: Boubacar Mendoza Primary Care Provider: Vargas Barber Other Providers: Boubacar Mendoza; Jennifer Hurtado; Mendez Pena; Jennifer Phillips; Samuel Pacheco; Kyaw Mazariegos; Luis Angel Morgan; Ronnie Díaz; Shavonne Benz; Jurgen Camacho; Kodi Joseph; Francisco Castro; Misha Serrano; Nasra Clifford; Joanne Cortez; Ronnie Chaudhary; Tia Barber
--- NOTE | 2024-04-16 12:41 | Electrocardiogram Report ---
Test Reason : Blood Pressure : */* mmHG Vent. Rate : 93 BPM Atrial Rate : 93 BPM P-R Int : 202 ms QRS Dur : 84 ms QT Int : 374 ms P-R-T Axes : 59 24 59 degrees QTcB Int : 465 ms Normal sinus rhythm Possible Left atrial enlargement Nonspecific T wave abnormality Abnormal ECG No previous ECGs available Confirmed by Bora Clancy ([id number]) on 04/16/2024 12:40:45 PM Referred By: REFERRED SELF Confirmed By: Bora Clancy
== END 2024-04-16 13:53 | disposition home or self-care (01) | DRG 312 ==
LOC: ED 21:29 → 2S 04-16 02:24 → INTOOBSV 04-16 02:24 → 2S 04-16 03:02